=== PATIENT | male | born 1945 | race Caucasian/White ===

== ENCOUNTER 2019-01-20 15:24 | Emergency (ER) | payer MEDICARE, OTHER, SELFPAY ==
[2019-01-20 15:36] VITALS: BP 143/98; PULSE 98; RESP 21; TEMP 36.8; O2SAT 99; BMI 25.8
--- NOTE | 2019-01-20 15:54 | HMH.EDUTC ---
[facility] [place]: At high risk for tick borne illness, Erythema migrans (Lyme disease) Disposition: Home, Self-Care Condition on Discharge: Good Instructions: Lyme Disease, DI for Lyme Disease Additional Instructions: Lyme disease is a bacterial infection caused by the bite of an infected tick. DISCHARGE INSTRUCTIONS: Call 911 for any of the following: Your heart is beating faster than usual and you feel dizzy. You have chest pain or trouble breathing. You suddenly cannot talk or see well, or you have trouble moving an area of your body. Return to the emergency department if: You have a headache and a stiff neck. You have trouble concentrating or thinking clearly. You have numbness or tingling in your arms or legs, or you have trouble walking. Contact your healthcare provider if: Your rash grows or spreads to other areas of your body. You suddenly have trouble falling or staying asleep. You have new or worsening pain and swelling in your joints. You have new or worsening weakness and muscle pain. You have a new tick bite. You have questions or concerns about your condition or care. Medicines: Antibiotics treat a bacterial infection. NSAIDs , such as ibuprofen, help decrease swelling, pain, and fever. This medicine is available with or without a doctor's order. NSAIDs can cause stomach bleeding or kidney problems in certain people. If you take blood thinner medicine, always ask your healthcare provider if NSAIDs are safe for you. Always read the medicine label and follow directions. Take your medicine as directed. Contact your healthcare provider if you think your medicine is not helping or if you have side effects. Tell him of her if you are allergic to any medicine. Keep a list of the medicines, vitamins, and herbs you take. Include the amounts, and when and why you take them. Bring the list or the pill bottles to follow-up visits. Carry your medicine list with you in case of an emergency. Follow up with family doctor in 5-7 days to get results from your blood test today in the [facility] Follow up with Family doctor for further treatment and evaluation of rash and further symptoms Make sure to use bug spray and protect yourself from future tick bites Return if needed Straight to ER if any life threatening symptoms Prescriptions: Doxycycline Monohydrate [Doxycycline Porter 100mg Tab] 100 mg PO BID #28 tab Referrals: Heidi Mueller MD [Primary Care Provider] - As needed Time of Disposition: 16:14 Medical Decision Making - Jayce Inquiry Pt receiving controlled substance: No Jayce was queried for this patient: No Vital Signs: 01/20/19 15:36 Temperature 98.2 F Temperature Source Oral Pulse Rate [Right Brachial] 98 H Respiratory Rate 21 Blood Pressure [Right Arm] 143/98 H Blood Pressure Mean [Right Arm] 113 Blood Pressure Source [Right Arm] Automatic Cuff Blood Pressure Position [Right Arm] Sitting 02 Sat by Pulse Oximetry 99 Oxygen Delivery Method Room Air [facility] [place] - General Stated complaint: rash Time Seen by Provider: 01/20/19 15:56 Mode of Arrival: Family Vehicle Source of Information: Patient Limitations: No Limitations Description of Symptoms (Recalled from Triage Doc. by RN): c/o rash on left baldwin x 1 week. States he had a tick on that area a month ago HEENT Symptoms (Recalled from RN notes): No Resp Symptoms (Recalled from RN notes): No Skin Symptoms (Recalled from RN notes): Yes MS Symptoms (Recalled from RN notes): No Functional Status (Recalled from RN notes): n/a - History of Present Illness Provider Complaint: Patient states that he had a tick bite on his left lower leg several weeks ago State that a couple of days ago he noticed a red raised bump like area on his lower leg a couple of days ago now noticed that he has a red rash with central clearing around the tick bite State that he has been reading and concerned he may have lymes disease from the tick bi
--- NOTE | 2019-01-20 15:58 | ED_ITS ---
[facility] [place]ression: At high risk for tick borne illness, Erythema migrans (Lyme disease) Disposition: Home, Self-Care Condition on Discharge: Good Instructions: Lyme Disease, DI for Lyme Disease Additional Instructions: Lyme disease is a bacterial infection caused by the bite of an infected tick. DISCHARGE INSTRUCTIONS: Call 911 for any of the following: * Your heart is beating faster than usual and you feel dizzy. * You have chest pain or trouble breathing. * You suddenly cannot talk or see well, or you have trouble moving an area of your body. Return to the emergency department if: * You have a headache and a stiff neck. * You have trouble concentrating or thinking clearly. * You have numbness or tingling in your arms or legs, or you have trouble walking. Contact your healthcare provider if: * Your rash grows or spreads to other areas of your body. * You suddenly have trouble falling or staying asleep. * You have new or worsening pain and swelling in your joints. * You have new or worsening weakness and muscle pain. * You have a new tick bite. * You have questions or concerns about your condition or care. Medicines: * Antibiotics treat a bacterial infection. * NSAIDs , such as ibuprofen, help decrease swelling, pain, and fever. This medicine is available with or without a doctor's order. NSAIDs can cause stomach bleeding or kidney problems in certain people. If you take blood thinner medicine, always ask your healthcare provider if NSAIDs are safe for you. Always read the medicine label and follow directions. * Take your medicine as directed. Contact your healthcare provider if you think your medicine is not helping or if you have side effects. Tell him of her if you are allergic to any medicine. Keep a list of the medicines, vitamins, and herbs you take. Include the amounts, and when and why you take them. Bring the list or the pill bottles to follow-up visits. Carry your medicine list with you in case of an emergency. Follow up with family doctor in 5-7 days to get results from your blood test today in the [facility] Follow up with Family doctor for further treatment and evaluation of rash and further symptoms Make sure to use bug spray and protect yourself from future tick bites Return if needed Straight to ER if any life threatening symptoms Prescriptions: Doxycycline Monohydrate [Doxycycline Antrim 100mg Tab] 100 mg PO BID #28 tab Referrals: Heidi Mueller MD [Primary Care Provider] - As needed Time of Disposition: 16:14 Medical Decision Making - Jayce Inquiry Pt receiving controlled substance: No Jayce was queried for this patient: No Vital Signs: 01/20/19 15:36 Temperature 98.2 F Temperature Source Oral Pulse Rate [Right Brachial] 98 H Respiratory Rate 21 Blood Pressure [Right Arm] 143/98 H Blood Pressure Mean [Right Arm] 113 Blood Pressure Source [Right Arm] Automatic Cuff Blood Pressure Position [Right Arm] Sitting 02 Sat by Pulse Oximetry 99 Oxygen Delivery Method Room Air [facility] [place] - General Stated complaint: rash Time Seen by Provider: 01/20/19 15:56 Mode of Arrival: Family Vehicle Source of Information: Patient Limitations: No Limitations Description of Symptoms (Recalled from Triage Doc. by RN): c/o rash on left baldwin x 1 week. States he had a tick on that area a month ago HEENT Symptoms (Recalled from RN notes): No Resp Symptoms (Recalled from RN notes): No Skin Symptoms
[2019-01-20 16:18] VITALS: BP 143/98; PULSE 98; RESP 21; TEMP 36.8; O2SAT 99
[2019-01-24 18:15] LABS: IgG P18 Ab. Absent (.); IgG P23 Ab. Absent (.); IgG P28 Ab. Absent (.); IgG P30 Ab. Absent (.); IgG P39 Ab. Absent (.); IgG P41 Ab. Absent (.); IgG P45 Ab. Absent (.); IgG P58 Ab. Absent (.); IgG P66 Ab. Absent (.); IgG P93 Ab. Absent (.); IgM P23 Ab. Absent (.); IgM P39 Ab. Absent (.); IgM P41 Ab. Absent (.)
[2019-01-26 06:22] LABS: Lyme IgG WB Interp. Negative (.); Lyme IgM WB Interp. Negative (.)
== END 2019-01-20 16:20 | disposition home or self-care (01) ==
PROVIDERS: Emergency Provider Nurse Practitioner; PCP Family Medicine
DX: A69.20 Lyme disease, unspecified (principal); Z91.89 Other specified personal risk factors, not elsewhere classified
CPT/HCPCS: G0463; 86617; 99201

== ENCOUNTER → 2020-10-15 11:42 | Outpatient (CLI) | payer MEDICARE, OTHER, SELFPAY ==
--- NOTE | 2020-10-15 | XR_ITS ---
PROCEDURE: XR SHOULDER LT MIN 2V CLINICAL INDICATION: UNSPECIFIED FALL, ACUTE PAIN OF LT SHOULDER COMPARISON: No exams were available for comparison FINDINGS: There is a small metal plate along the distal and superior aspect of the clavicle along with an anchor screw in the distal clavicle. There are mild osteoarthritic changes of the acromioclavicular and glenohumeral joint. No acute fracture or dislocation is evident. Old left-sided rib fractures are present from rib 2 to rib 7 IMPRESSION: Chronic and postsurgical changes. No acute finding. Dictated by: Francisco Kaur MD 10/15/2020 12:19 Francisco Kaur MD in [place] 10/15/2020 12:19
--- NOTE | 2020-10-15 | XR_ITS ---
PROCEDURE: XR HUMERUS LT CLINICAL INDICATION: UNSPECIFIED FALL, LT ARM PAIN COMPARISON: No exams were available for comparison FINDINGS: No fracture or dislocation. No lytic or blastic change. There is normal mineralization. Mild degenerative changes are present at the glenohumeral joint. There are multiple old left-sided rib fractures. Postsurgical changes are present at the distal clavicle. Other findings:None. IMPRESSION: No acute findings. Dictated by: Francisco Kaur MD 10/15/2020 12:20 Francisco Kaur MD in [facility] 10/15/2020 12:20
== END ==
PROVIDERS: PCP Family Medicine; Visit Provider Family Medicine
DX: M25.512 Pain in left shoulder (principal); M79.602 Pain in left arm; W19.XXXA Unspecified fall, initial encounter; Y92.009 Unspecified place in unspecified non-institutional (private) residence as the place of occurrence of the external cause
CPT/HCPCS: 73030; 73060

== ENCOUNTER 2020-11-10 06:50 | Observation (INO) | payer MEDICARE, OTHER, SELFPAY ==
[2020-11-10] VITALS (9 sets, daily range): BP systolic 96–133; BP diastolic 53–71; PULSE 63–112; RESP 16–18; TEMP 36.6–37.1; O2SAT 96–99; BMI 23.5; BMI 23.8
--- NOTE | 2020-11-10 07:19 | XR_ITS ---
PROCEDURE: XR CHEST 2V CLINICAL HISTORY: WEAKNESS COMPARISON: CT CT ABDOMEN PELVIS WO CON from 11/10/2020 FINDINGS: The cardiomediastinal silhouette and pulmonary vascularity are within normal limits. COPD changes. No lobar consolidation or collapse. No acute bony abnormalities. IMPRESSION: COPD, no acute finding Dictated by: Francisco Kaur MD 11/10/2020 09:17 Francisco Kaur MD in [facility] 11/10/2020 09:17
--- NOTE | 2020-11-10 07:23 | ECG_ITS ---
APPROVED REPORT Exam: Resting ECG HR:98 bpm ECG Measurements Heart Rate 98 AXES FL 126 P 47 QRSd 80 QRS 43 QT 334 T 62 QTc 426 Conclusion Sinus rhythm with marked sinus arrhythmia Otherwise normal ECG Electronically signed by : Jerome Hatfield, 11/10/2020 17:20:58
[2020-11-10 07:34] LABS: Basophils % 0.1 % (0.1-2.0); Eosinophils % 0.1 % (0.1-12.0); Hematocrit 38.8 % (42.0-52.0); Lymphocytes # 1.4 K/mm3 (0.7-4.5); Lymphocytes % 8.7 % (10-50); Mean Corpuscular HGB Conc 33.6 g/dL (31.8-35.4); Mean Corpuscular Hemoglobin 28.3 pg (27.0-31.2); Mean Corpuscular Volume 84.1 fl (80-94); Mean Platelet Volume 8.1 fl (7.4-10.4); Monocytes # 0.9 K/mm3 (0.1-1.0); Monocytes % 5.7 % (1.7-9.3); Neutrophils # 13.7 K/mm3 (1.8-7.8); Neutrophils % 85.3 % (37.0-80.0); Platelet Count 365 K/mm3 (142-424); Red Blood Count 4.61 M/mm3 (4.60-6.20); Red Cell Distribution Width 13.2 % (11.5-17.5)
[2020-11-10 07:38] LABS: MANUAL DIFFERENTIAL MANUAL DIFFERENTIAL (MANUAL DIFF)
[2020-11-10 07:41] LABS: Alanine Aminotransferase 210 U/L (12-78); Albumin/Globulin Ratio 1.1 (1.1-1.8); Alkaline Phosphatase 383 U/L (38-126); Anion Gap 16.6 mEq/L (5-15); Aspartate Amino Transferase 155 U/L (17-59); Bilirubin,Total 1.5 mg/dl (0.2-1.3); Blood Urea Nitrogen 49 mg/dl (9-20); Calcium 9.8 mg/dl (8.4-10.2); Carbon Dioxide 25 mmol/L (22.0-30.0); Chloride 91 mmol/L (98-107); Creatinine Clearance Estimated 30 mL/min (50-200); Estimated Glomerular Filt Rate 31 ml/min (>60); GFR (African American) 38 ML/MIN (>60); Globulin 3.8 g/dL (1.3-3.2); Glucose 137 mg/dl (74-100); Potassium 3.6 mmoL/L (3.5-5.1); Sodium 129 mmol/L (136-145); Total Protein,Serum 7.8 g/dl (6.3-8.2)
[2020-11-10 07:53] LABS: Troponin I 0.06 ng/ml (0.00-0.034)
--- NOTE | 2020-11-10 07:59 | CT_ITS ---
PROCEDURE: CT ABDOMEN PELVIS WO CON CLINICAL INDICATION: ELEVATED LFT'S Elevated liver enzymes, weakness, loss of appetite COMPARISON: No exams were available for comparison TECHNIQUE: Axial images obtained with sagittal and coronal reformats. All CT scans at the facility use one or more dose reduction, viz: automated exposure control, ma/kV adjustment per patient size (including targeted exams where dose is matched to indication, i.e. head), or iterative reconstruction technique. FINDINGS: LOWER THORAX: Coronary artery calcifications ABDOMEN & PELVIS: There are at least 4 hypodense lesions of the liver the largest in the right hepatic lobe anteriorly at 2 cm measuring near water density and may represent hepatic cysts. There is mild splenomegaly at 14 cm. The adrenal glands and pancreas has an unremarkable appearance. There are nonobstructing bilateral renal calculi 2 mm on the right and 2 mm on the left. No ureteral calculi. No hydronephrosis. The stomach wall is thickened but may be due to the contracted state. Gastritis would be included in the differential diagnosis. Lobular soft tissue density is present anterior to the aorta in the upper abdomen. This may be related to fusiform dilatation of the celiac artery measuring up to [address] angiogram may confirm. There are few small retroperitoneal lymph nodes. Adenopathy is included in the differential diagnosis. No intestinal obstruction or free air. No evidence of appendicitis. The prostate is enlarged at 5 cm. There is some minimal stranding of the fat in the left lower quadrant/inguinal area. This is adjacent to a colonic diverticulum. That diverticulum however does not appear thickened. There is colonic diverticulosis. No intestinal obstruction or free air. No acute bony findings. IMPRESSION: 1. Probable hepatic cysts 2. Nonobstructing bilateral renal calculi. 3. 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 Mild stranding of the fat in the left inguinal region adjacent to a colonic diverticulum. Mild diverticulitis or even old inflammatory changes is a consideration. Please correlate with clinical findings. 5. Colonic diverticulosis. Dictated by: Francisco Kaur MD 11/10/2020 09:49 Francisco Kaur MD in [place] 11/10/2020 09:49
--- NOTE | 2020-11-10 08:00 | PC.NURSE ---
FAMILY AT BEDSIDE
[2020-11-10 08:11] LABS: Lymphocytes % 12 % (10-50); Monocytes % 3 % (2-9); Neutrophils % 84 % (42-76); Thyroid Stimulating Hormone 0.71 uIU/mL (0.465-4.68); Total Cells Counted 100
[2020-11-10 08:12] LABS: Platelet Estimate Normal; RBC Morphology Normal
[2020-11-10 08:54] LABS: Microscopic, Urine URINE MICROSCOPIC (MICROSCOPIC)
[2020-11-10 08:59] LABS: Appearance,Urine CLEAR (Clear); Bilirubin,Urine Negative (Negative); Blood, Urine Negative (Negative); Color,Urine YELLOW (Yellow); Glucose,Urine (UA) Negative (Negative); Ketones,Urine Negative (Negative); Leukocyte Esterase,Urine Negative (Negative); Nitrate,Urine Negative (Negative); Protein,Urine TRACE (Negative)
--- NOTE | 2020-11-10 09:00 | PC.NURSE ---
PT OFFERS NO C/O AT PRESENT. FAMILY AT BEDSIDE
[2020-11-10 09:08] LABS: RBC,Urine Occasional #/hpf (0-3); Squamous Epithelial Cell,Urine Occasional #/hpf (0-5)
--- NOTE | 2020-11-10 09:11 | PC.NURSE ---
requested lab results from pt pcp office per ER MD request r/t no lab hx in our system.
[2020-11-10 09:33] LABS: Creatine Kinase 41 U/L (55-170)
--- NOTE | 2020-11-10 10:00 | PC.NURSE ---
PT AND FAMILY UPDATED ON PLAN OF CARE
--- NOTE | 2020-11-10 10:18 | HMH.EDGENADL ---
ED Disposition Clinical Impression: Dehydration, Hyponatremia, Acute kidney injury, Elevated transaminase level Disposition: Admitted As Inpatient Condition on Discharge: Fair Referrals: Heidi Mueller MD [Primary Care Provider] - - Critical Care Critical Care Time: No Attestation: On 11/10/20, the high probability of a clinically significant, sudden or life threatening deterioration of the following system(s) required my full and direct attention, intervention and personal management. The time I documented below is in addition to time spent performing reported procedures but includes the following listed in this critical care notation. Medical Decision Making - Medical Records Medical records reviewed: Yes: I reviewed the patient's medical records. - Jayce Inquiry Pt receiving controlled substance: No Vital Signs: 11/10/20 07:15 11/10/20 08:00 11/10/20 08:57 Temperature 98.7 F Temperature Source Oral Pulse Rate 85 Pulse Rate [Radial] 112 H 88 Respiratory Rate 16 16 Blood Pressure 98/53 L Blood Pressure [Right Arm] 96/55 L 120/62 Blood Pressure Mean 70 Blood Pressure Mean [Right Arm] 68 81 Blood Pressure Position [Right Arm] Sitting Sitting 02 Sat by Pulse Oximetry 98 99 98 Oxygen Delivery Method Room Air Room Air Room Air - Lab Data Lab Results 11/10/20 07:03: Urine Color Yellow, Urine Appearance Clear, Urine pH 6.0, Ur Specific [place] 1.010, Urine Protein Trace, Urine Glucose (UA) Negative, Urine Ketones Negative, Urine Blood Negative, Urine Nitrate Negative, Urine Bilirubin Negative, Urine Urobilinogen 2.0, Ur Leukocyte Esterase Negative, Urine RBC Occasional, Urine WBC 3-5, Ur Squamous Epith Cells Occasional, Urine Bacteria None 11/10/20 07:10: WBC 16.0 H, RBC 4.61, Hgb 13.0 L, Hct 38.8 L, MCV 84.1, MCH 28.3, MCHC 33.6, RDW 13.2, Plt Count 365, MPV 8.1, Neut % (Auto) 85.3 H, Lymph % (Auto) 8.7 L, Schley % (Auto) 5.7, Eos % (Auto) 0.1, Baso % (Auto) 0.1, Neut # (Auto) 13.7 H, Lymph # (Auto) 1.4, Schley # (Auto) 0.9, Eos # (Auto) 0.0, Baso # (Auto) 0.0, Total Counted 100, Neutrophils % (Manual) 84 H, Band Neutrophils % 1.0, Lymphocytes % (Manual) 12, Monocytes % (Manual) 3, Platelet Estimate Normal, RBC Morphology Normal 11/10/20 07:10: Sodium 129 L, Potassium 3.6, Chloride 91 L, Carbon Dioxide 25, Anion Gap 16.6 H, BUN 49 H, Creatinine 2.10 H, Estimated Creat Clear 30, Estimated GFR 31 L, Est GFR ( Amer) 38 L, Glucose 137 H, Calcium 9.8, Total Bilirubin 1.5 H, AST 155 H, ALT 210 H, Alkaline Phosphatase 383 H, Troponin I 0.06 H, Total Protein 7.8, Albumin 4.0, Globulin 3.8 H, Albumin/Globulin Ratio 1.1, TSH 0.71, Thyroxine (T4) 12.0 H 11/10/20 07:10: Total Creatine Kinase 41 L 11/10/20 10:17: Troponin I 0.04 H Result diagrams: 11/10/20 07:10 11/10/20 07:10 Orders (Tests/Meds): ED MEDICATIONS Discontinued Medications Generic Name Dose Route Start Last Admin Trade Name Freq PRN Reason Stop Dose Admin Sodium Chloride 1,000 mls @ 999 mls/hr 11/10/20 07:30 11/10/20 07:28 Sod Chlor 0.9% 1000ml Bag IV 11/10/20 08:30 999 mls/hr .Q1H1M JAGDEEP Administration Sodium Chloride 1,000 mls @ 999 mls/hr 11/10/20 09:45 11/10/20 10:11 Sod Chlor 0.9% 1000ml Bag IV 11/10/20 10:45 999 mls/hr .Q1H1M JAGDEEP Administration ORDERS Category Date Time Status Hepatitis Panel (4) Stat Lab 11/10/20 07:10 Received Troponin I Q3H Lab 11/10/20 13:30 Ordered - Radiology Data #1 Image(s): Chest Image Reviewed: Yes I reviewed the patient's radiology results, Yes I have reviewed radiologist's interpretation Preliminary Findings: Normal/NAD, No Fracture Seen - CT Data CT Scan: Abdomen, Pelvis Time Received: 11:[address] Reviewed: Yes: I have reviewed the patient's CT results, I have viewed the radiologist's interpretation Findings Narrative: IMPRESSION: 1. Probable hepatic cysts 2. Nonobstructing bilateral renal calculi. 3. Suspect mild fusiform dilatation of the
[2020-11-10 10:46] LABS: Troponin I 0.04 ng/ml (0.00-0.034)
--- NOTE | 2020-11-10 11:09 | PC.NURSE ---
FAMILY AND PT UPDATED ON PLAN OF CARE
--- NOTE | 2020-11-10 11:31 | PC.NURSE ---
dr hernandez speaking with dr adams
--- NOTE | 2020-11-10 12:23 | PC.NURSE ---
REPORT CALLED TO FLOOR
--- NOTE | 2020-11-10 13:00 | PC.NURSE ---
CALLED FLOOR REGARDING PT ADMISSION. NURSE IS COMING TO ED TO BRING PT TO ROOM
[2020-11-10 14:20] LABS: Troponin I 0.03 ng/ml (0.00-0.034)
--- NOTE | 2020-11-10 14:23 | HMH.PHAVTE ---
[facility] Pharmacy VTE Monitoring - Patient Demographics Admission date: 11/10/20 Report Date: 11/10/20 Time: 14:23 Allergies/Adverse Reactions: Patient Allergies No Known Allergies Allergy (Verified 01/20/19 15:39) Height: 1.7 m Weight: 68.946 kg Patient Problems: Current Active Problems Dehydration (Acute) Hyponatremia (Acute) Acute kidney injury (Acute) Elevated transaminase level (Acute) - VTE Risk Labs: VTE Related Lab Results Hgb 13.0 g/dL (14.1-18.0) L 11/10/20 07:10 Hct 38.8 % (42.0-52.0) L 11/10/20 07:10 Plt Count 365 K/mm3 (142-424) 11/10/20 07:10 BUN 49 mg/dl (9-20) H 11/10/20 07:10 Creatinine 2.10 mg/dl (0.66-1.25) H 11/10/20 07:10 Estimated Creat Clear 30 mL/min (50-200) 11/10/20 07:10 - Prophylaxis VTE Prophylaxis Ordered?: Yes Types of VTE Prophylaxis: TEDS Knee High, Pharmacological Location of Applied Device: Bilateral Lower Extremeties Pharmacologic Type: Enoxaparin
--- NOTE | 2020-11-10 14:25 | HMH.PHAINT ---
MEDICATION RECONCILIATION COMPLETED ON PATIENT USING EXTERNAL FILL HISTORY FROM PHARMACY. -GÓMEZ LAY, KARYNAD
--- NOTE | 2020-11-10 14:30 | HMH.CONS ---
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 He was admitted to the hospital today for fatigue, dehydration and transaminitis. Per his daughter's report, about 5 weeks ago, the patient may have been exposed to Covid?19. About 5 days later he developed a mild fever, some upper respiratory allergy-like symptoms but did not seek care for that. A few days after that the patient had a fall on October 15, injuring his left arm. The patient felt like he was in such discomfort and pain from the fall that he became very fatigued and lost his appetite and most of his motivation. He denies any nausea, vomiting, further fever. He did report chills. He denies any abdominal pain, change in his bowel habits, melena or hematochezia. He reports he was eating very little and having a bowel movement about every other day. His daughter reports that he has been seen by his PCP and had some very mild elevations in his liver enzymes but the patient denies ever having problems with his liver previous to this. He denies any alcohol or NSAID use. He denies any exposure to hepatitis that he is aware of. Upon arrival to the ER today, he was mildly tachycardic and mildly hypotensive. He did have an elevated WBCs of 16 and a mildly low hemoglobin of 13. He had low sodium at 129 and a creatinine elevated at 2.10. Chest x-ray showed only COPD. CT scan showed 4 lesions in the liver that look to be hepatic cysts and mild splenomegaly at 14 cm. He did have a thickened stomach wall gastritis versus nondistention. He had some mild stranding of fat in the left inguinal area near a diverticulum but there was no thickening of that diverticulum. He did have elevation of bilirubin at 1.5, AST at 155, ALT at 210, and alk phos of 383. He is seen sitting up in his bed in the patient's room since admission. He has gotten 2 L of IV fluids since admission. He reports feeling significantly better since receiving IV fluids. He was able to eat provided lunch and feels as though he could have a bowel movement. [facility] History *Have you ever received a pneumonia vaccine?: Yes *Have you received a flu vaccine this season?: Yes - *Social History Alcohol Intake: never *Occupational Status:: retired *Travel in the last 8 weeks: None Family Hx:: Non-contributory Review of Systems - Review of Systems Review of systems:: other, pertinent systems reviewed and negative unless documented below - Constitutional Reports anorexia, Reports body ache(s), Reports chills, Reports fatigue, Reports fever(s), Reports lack of energy, Reports weight loss - Eyes Denies change in vision, Denies pain - ENT Denies dizziness, Denies nosebleed, Denies hoarseness, Denies pain with swallowing, Denies throat swelling - *Cardiovascular Denies chest pain, Denies shortness of breath, Denies generalized swelling, Denies leg swelling - *Respiratory Reports cough, Denies chest congestion, Denies shortness of breath Comments: Patient reports chronic cough - *Gastrointestinal Denies abdominal pain, Denies belching, Denies bloating, Denies constipation, Denies loose stools, Denies difficulty swallowing, Denies bright, red blood in stools, Denies nausea, Denies vomiting - *Musculoskeletal Reports muscle weakness, Denies joint pain, Denies numbness, Denies tingling - Integumentary/Breasts Denies changing lesions, Denies dry skin, Denies itching - *Neurologic Reports weakness, Denies abnormal speech, Denies behavioral changes, Denies headache(s) - Psychiatric Denies lack of enjoyment, Denies anxiety, Denies behavioral changes, Denies depression - Endocrine Reports cold intolerance, Denies heat intolerance - Hematologic/Lymphatic Denies easy bleeding, Denies easy bruising Meds Home Medications Medication Instructions Recorded Confirmed Type Benazepril HCl 1
--- NOTE | 2020-11-10 16:31 | PC.ADMIT ---
Admission Note: New admission this shift from the ED w/ c/o generalized weakness, poor appetite and a fall on October 15 of this year. Pt arrived to floor @ 1330. No complaints voiced. Pt states he already feels better after receiving fluids in the ED. He is A&Ox4. Pt is [employer] and wears hearing aids, they are on his person. Remains on room air. Lungs CTA. No cough noted. Abdomen is soft,non-tender w/ hyperactive BS in all quads. When he arrived to floor pt ate about 30% of this dinner tray, tolerating intake w/ no c/o gi upset/nausea. Skin intact. No edema present. He is currently sitting up in bed watching TV. Daughter @ [place]. No needs voiced. Pt ambulates independently to bathroom w/o safety concerns. Call paz w/in reach. The patient,Abimael Badillo,75 y/o, was given written information regarding hospital policies, unit procedures and contact persons. Vital Signs - 8 hr 11/10/20 08:57 11/10/20 09:57 11/10/20 11:00 Temperature Pulse Rate Pulse Rate [Radial] 88 88 100 H Respiratory Rate 16 16 Blood Pressure Blood Pressure [Right Arm] 120/62 122/62 126/56 L 02 Sat by Pulse Oximetry 98 98 97 11/10/20 13:38 11/10/20 13:59 Temperature 98.5 F 98 F Pulse Rate 80 Pulse Rate [Radial] 95 H Respiratory Rate 17 16 Blood Pressure 122/62 Blood Pressure [Right Arm] 120/58 L 02 Sat by Pulse Oximetry 96
--- NOTE | 2020-11-10 17:00 | HMH.HP ---
*Admission Date: 11/10/20 *Chief complaint: Weakness *History of present illness: 75-year-old male presented to the emergency department this morning with weakness and malaise. The patient himself relates all this back to a fall in late September which resulted in a left shoulder injury. Patient visited the office and had an evaluation including x-rays which did not reveal any fracture. While his pain was never severe he reports that because of the fall and injury this ultimately led to lack of motivation, lack of appetite and weakness. He admits to approximately a 15 pound weight loss. He reports within the last week he finally realized that his health was declining and he began to try to increase his p.o. intake but feels like he cannot do it himself out of the hole he had created. He is accompanied by his daughter who reports his fall 1 month ago was preceded by an upper respiratory illness. Patient is mostly compliant with doctor's visits and takes his medicines as prescribed. Review of office notes shows no history of liver abnormalities other than a mild elevation of total bilirubin with last total bili being 1.3 in April 2020. Transaminases were normal. Patient also had normal renal function at that time. In the emergency department patient underwent evaluation and was found to have evidence of acute kidney injury likely prerenal in nature as well as transaminitis. Patient was successfully hydrated with 2 L normal saline. Patient himself reports feeling significantly better after fluid boluses. He was admitted for further IV hydration, monitoring of electrolytes, renal and hepatic functions. Patient has history of hypertension and hyperlipidemia. He also has had elevated PSA for several years with last PSA being 6.3 in April 2020. Patient's in the fall 2019. [facility] History I have reviewed the patient's past medical history: Yes Medical History: Reports:: Hyperlipidemia, Hypertension Denies:: Cancer, Diabetes Mellitus Type 2, MRSA *Have you ever received a pneumonia vaccine?: Yes *Have you received a flu vaccine this season?: Yes Laterality Cases: Left: Arthroscopy Shoulder - *Social History Last grade of school completed: High school graduate Alcohol Intake: never *Occupational Status:: retired Housing: house Household Members: none *Travel in the last 8 weeks: None Family Hx:: No significant family history Review of Systems - Constitutional Reports anorexia - Eyes Denies blurry vision - ENT Reports abnormal hearing - *Cardiovascular Denies chest pain - *Respiratory Denies change in phlegm color - *Gastrointestinal Denies abdominal pain, Denies belching, Denies bloating, Denies change in bowel habits, Denies cramping, Denies loose stools, Denies heartburn, Denies loose stools - *Genitourinary Reports urinary frequency, Denies difficulty urinating, Denies painful urination, Denies blood in urine - *Musculoskeletal Denies abnormal walking - Integumentary/Breasts Denies hair loss - *Neurologic Reports weakness, Denies abnormal speech, Denies behavioral changes, Denies dizziness, Denies headache(s), Denies numbness, Denies tingling Meds Home Medications Medication Instructions Recorded Confirmed Type Benazepril HCl 10 mg PO DAILY 01/20/19 11/10/20 History Simvastatin 20 mg PO HS 01/20/19 11/10/20 History Amlodipine Besylate [Norvasc 5mg 5 mg PO DAILY 11/10/20 11/10/20 History tablet] Aspirin [Aspirin 81mg EC Tab] 81 mg PO DAILY 11/10/20 11/10/20 History Triamterene/Hydrochlorothiazid 1 each PO DAILY 11/10/20 11/10/20 History [Triamterene-Hctz 37.5-25 mg Tb] Allergies Allergy/AdvReac Type Severity Reaction Status Date / Time No Known Allergies Allergy Verified 01/20/19 15:39 Exam Vital signs and Labs for Last 24 Hours: Temp Pulse Resp BP Pulse Ox 98 F 80 16 122/62 96 11/10/20 13:59 11/10/20 13:59 11/10/20 13:59 11/10/20 13:59 0
[2020-11-11 04:00] VITALS: BP 134/68; PULSE 100; RESP 16; TEMP 36.7; O2SAT 97
[2020-11-11 05:19] VITALS: BMI 23.8
--- NOTE | 2020-11-11 05:19 | PC.NURSE ---
Patient VS stable; shows no s/s of acute distress noted at time. Call light within reach, bed at lowest level for safety. Will continue to monitor.
--- NOTE | 2020-11-11 07:01 | HMH.ACPN2 ---
Internal Medicine - PN: Subj *Date: 11/11/20 *Time: 07:01 Interval history: Patient has no complaints this morning. He reports he ate most of his supper yesterday evening. IV fluids have continued. He denies any new symptoms developing overnight. Exam Vital signs and Labs for Last 24 Hours: Temp Pulse Resp BP Pulse Ox 98.0 F 100 H 16 134/68 97 11/11/20 04:00 11/11/20 04:00 11/11/20 04:00 11/11/20 04:00 11/11/20 04:00 Laboratory Results - last 24 hr 11/10/20 07:03: Urine Color Yellow, Urine Appearance Clear, Urine pH 6.0, Ur Specific [place] 1.010, Urine Protein Trace, Urine Glucose (UA) Negative, Urine Ketones Negative, Urine Blood Negative, Urine Nitrate Negative, Urine Bilirubin Negative, Urine Urobilinogen 2.0, Ur Leukocyte Esterase Negative, Urine RBC Occasional, Urine WBC 3-5, Ur Squamous Epith Cells Occasional, Urine Bacteria None 11/10/20 07:10: WBC 16.0 H, RBC 4.61, Hgb 13.0 L, Hct 38.8 L, MCV 84.1, MCH 28.3, MCHC 33.6, RDW 13.2, Plt Count 365, MPV 8.1, Neut % (Auto) 85.3 H, Lymph % (Auto) 8.7 L, [place] % (Auto) 5.7, Eos % (Auto) 0.1, Baso % (Auto) 0.1, Neut # (Auto) 13.7 H, Lymph # (Auto) 1.4, [place] # (Auto) 0.9, Eos # (Auto) 0.0, Baso # (Auto) 0.0, Total Counted 100, Neutrophils % (Manual) 84 H, Band Neutrophils % 1.0, Lymphocytes % (Manual) 12, Monocytes % (Manual) 3, Platelet Estimate Normal, RBC Morphology Normal 11/10/20 07:10: Sodium 129 L, Potassium 3.6, Chloride 91 L, Carbon Dioxide 25, Anion Gap 16.6 H, BUN 49 H, Creatinine 2.10 H, Estimated Creat Clear 30, Estimated GFR 31 L, Est GFR ( Amer) 38 L, Glucose 137 H, Calcium 9.8, Total Bilirubin 1.5 H, AST 155 H, ALT 210 H, Alkaline Phosphatase 383 H, Troponin I 0.06 H, Total Protein 7.8, Albumin 4.0, Globulin 3.8 H, Albumin/Globulin Ratio 1.1, TSH 0.71, Thyroxine (T4) 12.0 H 11/10/20 07:10: Total Creatine Kinase 41 L 11/10/20 10:17: Troponin I 0.04 H 11/10/20 13:45: Troponin I 0.03 I & O for Last 24 hours: Intake & Output 11/08/20 11/09/20 11/10/20 11/11/20 11:59 11:59 11:59 11:59 Intake Total 1583 / 1583 Output Total 1700 / 1700 Balance -117 / -117 Weight 150 lb 151 lb 15.998 oz Microbiology Reports for the Last 24 Hours: Microbiology 11/10/20 08:00 Nasopharyngeal Coronavirus COVID-19 PCR - Final - Constitutional no acute distress - *Routine HEENT Exam Head: Present: normocephalic Eye: Present: EOMI, PERRL ENT: Present: mucous membranes moist - *Routine Neck Exam Present: supple. Absent: lymphadenopathy - *Routine Respiratory Exam Present: CTA bilaterally - *Routine Cardiovascular Exam Present: RRR - *Routine Abdominal Exam Present: soft, normoactive bowel sounds. Absent: tenderness - *Routine Extremities Exam Absent: cyanosis, clubbing, edema Assessment and Plan (1) Acute kidney injury Status: Acute Category: Medical Code(s): N17.9 - Acute kidney failure, unspecified (2) Elevated transaminase level Status: Acute Category: Medical Code(s): R74.01 - Elevation of levels of liver transaminase levels (3) Dehydration Status: Acute Category: Medical Code(s): E86.0 - Dehydration (4) Hyponatremia Status: Acute Category: Medical Code(s): E87.1 - Hypo-osmolality and hyponatremia - Assessment and plan all Dx Assessment and Plan for all problems:: Await labs this morning. Anticipate discharge as long as there has been improvement in both renal and hepatic functions
[2020-11-11 07:23] LABS: Basophils % 0.2 % (0.1-2.0); Eosinophils % 0.1 % (0.1-12.0); Hematocrit 31.7 % (42.0-52.0); Lymphocytes # 0.7 K/mm3 (0.7-4.5); Lymphocytes % 6.3 % (10-50); Mean Corpuscular HGB Conc 33.1 g/dL (31.8-35.4); Mean Corpuscular Hemoglobin 28.2 pg (27.0-31.2); Mean Corpuscular Volume 85.2 fl (80-94); Mean Platelet Volume 7.6 fl (7.4-10.4); Monocytes # 0.5 K/mm3 (0.1-1.0); Monocytes % 4.2 % (1.7-9.3); Neutrophils # 9.6 K/mm3 (1.8-7.8); Neutrophils % 89.2 % (37.0-80.0); Platelet Count 215 K/mm3 (142-424); Red Blood Count 3.72 M/mm3 (4.60-6.20); Red Cell Distribution Width 13.4 % (11.5-17.5); White Blood Count 10.8 K/mm3 (4.8-10.8)
[2020-11-11 07:25] LABS: MANUAL DIFFERENTIAL MANUAL DIFFERENTIAL (MANUAL DIFF)
[2020-11-11 07:26] VITALS: BP 143/74; PULSE 109; RESP 18; TEMP 36.6; O2SAT 97
[2020-11-11 07:26] LABS: Hemoglobin 10.5 g/dL (14.1-18.0)
[2020-11-11 07:30] LABS: Iron 18 ug/dL (49-181)
[2020-11-11 07:34] LABS: Alanine Aminotransferase 159 U/L (12-78); Albumin Level 3.2 g/dl (3.5-5.0); Alkaline Phosphatase 286 U/L (38-126); Anion Gap 11.6 mEq/L (5-15); Aspartate Amino Transferase 99 U/L (17-59); Bilirubin,Total 1.3 mg/dl (0.2-1.3); Blood Urea Nitrogen 34 mg/dl (9-20); Carbon Dioxide 24 mmol/L (22.0-30.0); Chloride 99 mmol/L (98-107); Creatinine Clearance Estimated 45 mL/min (50-200); Estimated Glomerular Filt Rate 50 ml/min (>60); GFR (African American) 60 ML/MIN (>60); Globulin 3.2 g/dL (1.3-3.2); Glucose 116 mg/dl (74-100); Potassium 3.6 mmoL/L (3.5-5.1); Sodium 131 mmol/L (136-145); Total Protein,Serum 6.4 g/dl (6.3-8.2)
[2020-11-11 07:37] LABS: Calcium 8.7 mg/dl (8.4-10.2)
[2020-11-11 07:49] LABS: Total Iron Binding Capacity 257 ug/dL (261-462)
[2020-11-11 08:39] LABS: Lymphocytes % 4 % (10-50); Monocytes % 4 % (2-9); Neutrophils % 92 % (42-76); Platelet Estimate Normal; RBC Morphology Normal; Total Cells Counted 100
[2020-11-11 08:55] LABS: Ferritin 1020 ng/ml (17.9-464)
[2020-11-11 11:12] LABS: Hep A Ab, IgM Negative (Negative); Hepatitis B Core Antibody IgM Negative (Negative); Hepatitis B Surface Antigen Negative (Negative)
[2020-11-11 13:40] LABS: Hepatitis C Antibody <0.1 s/co ratio (0.0-0.9)
[2020-11-12 11:21] LABS: Prostate Specific Ag 6.9 ng/mL (0.0-4.0)
[2020-11-12 11:22] LABS: Alpha-1-Antitrypsin 273 mg/dL (101-187); Ceruloplasmin 34.1 mg/dL (16.0-31.0); PSA, Free 0.61 ng/mL
[2020-11-12 16:47] LABS: Angiotensin Converting Enzyme <15 U/L (14-82)
[2020-11-12 17:33] LABS: Liver-Kidney Microsomal Ab 1.5 Units (0.0-20.0)
[2020-11-15 10:26] LABS: CA 19-9 15 U/mL (0-35); CEA 2.9 ng/mL (0.0-4.7)
[2020-11-15 11:56] LABS: Actin (Smooth Muscle) Antibody 3
[2020-11-15 11:57] LABS: Anti-DNA (DS) Ab Charge YES; Anti-DNA (DS) Ab Qn <1; Antinuclear Antibodies (ANA) POSITIVE; Mitochondrial (M2) Antibody <20.0; RNP Antibodies Charge YES
[2020-11-15 11:58] LABS: Anti-Jo-1 <.2; Anti-Jo-1 Charge YES; Antichromatin Abs Charge YES; Antichromatin Antibodies <.2; Antiscleroderma-70 Abs Charge YES; Antiscleroderma-70 Antibodies <.2; RNP Antibodies 1.2; Sjogren's Anti-SS-A <.2; Sjogren's Anti-SS-A Ab Charge YES; Sjogren's Anti-SS-B <.2; Sjogren's Anti-SS-B Ab Charge YES; Smith Antibodies Charge YES
[2020-11-15 11:59] LABS: Anti-Centromere B Abs Charge YES; Anti-Centromere B Antibodies <.2
--- NOTE | 2020-11-29 07:22 | HMH.DCSUM ---
General - General Admission date:: 11/10/20 Discharge date: 12/12/20 HPI HPI: 75-year-old male presented to the emergency department this morning with weakness and malaise. The patient himself relates all this back to a fall in late September which resulted in a left shoulder injury. Patient visited the office and had an evaluation including x-rays which did not reveal any fracture. While his pain was never severe he reports that because of the fall and injury this ultimately led to lack of motivation, lack of appetite and weakness. He admits to approximately a 15 pound weight loss. He reports within the last week he finally realized that his health was declining and he began to try to increase his p.o. intake but feels like he cannot do it himself out of the hole he had created. He is accompanied by his daughter who reports his fall 1 month ago was preceded by an upper respiratory illness. Patient is mostly compliant with doctor's visits and takes his medicines as prescribed. Review of office notes shows no history of liver abnormalities other than a mild elevation of total bilirubin with last total bili being 1.3 in April 2020. Transaminases were normal. Patient also had normal renal function at that time. In the emergency department patient underwent evaluation and was found to have evidence of acute kidney injury likely prerenal in nature as well as transaminitis. Patient was successfully hydrated with 2 L normal saline. Patient himself reports feeling significantly better after fluid boluses. He was admitted for further IV hydration, monitoring of electrolytes, renal and hepatic functions. Patient has history of hypertension and hyperlipidemia. He also has had elevated PSA for several years with last PSA being 6.3 in April 2020. Patient's in the fall 2019. Hospital Course Hospital Course: Patient was bolused with IV fluids in the ER and admitted for dehydration and generalized weakness. By the afternoon of admission patient had already begun feeling better and was eating better than he had at home. The next morning patient's BUN and creatinine as well as transaminases had all decreased. Patient was feeling better and was discharged home. Patient will follow-up in the office as an outpatient and will need further work-up for possible malignancy including colonoscopy. Objective Vital signs: Temp Pulse Resp BP Pulse Ox 97.8 F 109 H 18 143/74 H 97 11/11/20 07:26 11/11/20 07:26 11/11/20 07:26 11/11/20 07:26 11/11/20 07:26 DS: Diagnosis - Discharge Diagnosis (1) Acute kidney injury Status: Acute (2) Elevated transaminase level Status: Acute (3) Dehydration Status: Acute (4) Hyponatremia Status: Acute Discharge Plan - Patient Discharge Instructions ACTIVITY: Continue current activity DIET: continue same diet Patient Instructions: DI for Dehydration -- Adult, DI for Hyponatremia, DI for Acute Kidney Injury - Follow up Plan Follow up with: Heidi Mueller MD [Primary Care Provider] - 11/18/20 9:30 am Disposition: Home, Self-Detention Medications: Home Medications Medication Instructions Recorded Confirmed Type Benazepril HCl 10 mg PO DAILY 01/20/19 11/21/20 History Simvastatin 20 mg PO HS 01/20/19 11/21/20 History Amlodipine Besylate [Norvasc 5mg 5 mg PO DAILY 11/10/20 11/21/20 History tablet] Aspirin [Aspirin 81mg EC Tab] 81 mg PO DAILY 11/10/20 11/21/20 History Ferrous Sulfate [Ferrous Sulfate 325 mg PO DAILY 11/21/20 11/21/20 History 325mg Tablet] Multivit-Min/FA/Lycopen/Lutein 1 each PO DAILY 11/22/20 11/22/20 History [Centrum Silver Men Tablet] Prescriptions/Medication Reconciliation: Continued Simvastatin 20 mg PO HS Benazepril HCl 10 mg PO DAILY Aspirin [Aspirin 81mg EC Tab] 81 mg PO DAILY Amlodipine Besylate [Norvasc 5mg tablet] 5 mg PO DAILY Discontinued Triamterene/Hydrochlorothia
== END 2020-11-11 09:28 | disposition home or self-care (01) ==
LOC: ER 11:36 → 2ND 12:20
PROVIDERS: Emergency Medicine; Nurse Practitioner Family; Admitting Provider Family Medicine; Emergency Provider Emergency Medicine; PCP Family Medicine; Visit Provider Family Medicine
DX: E86.0 Dehydration (principal); E87.1 Hypo-osmolality and hyponatremia; N17.9 Acute kidney failure, unspecified; Z79.899 Other long term (current) drug therapy; R97.20 Elevated prostate specific antigen [PSA]; R74.01 Elevation of levels of liver transaminase levels
CPT/HCPCS: 36415; 71046; 74176; 80053; 80074; 81001; 82103; 82164; 82378; 82390; 82550; 82728; 83540; 83550; 84153; 84154; 84436; 84443; 84484; 85007; 85025; 86038; 86225; 86235; 86255; 86256; 86316; 86376; 93005; 96365; 96367; 99284; G0378; U0003

== ENCOUNTER 2020-11-21 18:29 | Inpatient (IN) | payer MEDICARE, OTHER, SELFPAY ==
--- NOTE | 2020-11-21 10:30 | CT_ITS ---
PROCEDURE: CT ABDOMEN PELVIS WO/W CON CLINICAL INDICATION: ABD PAIN COMPARISON: CT CT ABDOMEN PELVIS WO CON from 11/10/2020 TECHNIQUE: IV Contrast: 75ML Isovue 370 Oral Contrast None Axial images obtained with sagittal and coronal reformats. All CT scans at the facility use one or more dose reduction, viz: automated exposure control, ma/kV adjustment per patient size (including targeted exams where dose is matched to indication, i.e. head), or iterative reconstruction technique. FINDINGS: LOWER THORAX: Small bilateral pleural effusions with adjacent compressive atelectasis. Calcified granuloma in the right lower lobe. ABDOMEN & PELVIS: There is a large focal heterogeneous density lesion noted in the segments 6, 7 of the liver measuring approximately 7.3 x 6.1 times 12 centimeters. Multiple focal areas of hypodensities are noted within the lesion. Heterogeneous enhancement is noted on the venous phase. Delayed phase images demonstrate isodense to the liver with the multifocal areas of hypodensities. There is minor heterogeneous density noted in the periportal region and adjacent to the dilated ducts. Minor adjacent periportal edema is noted. The CBD otherwise is normal in caliber. There is evidence of thrombosis of the right portal vein. The main portal vein and the left main branch appears are intact. The visualized hepatic veins are within normal limits. Focal hypodense lesions are noted in the liver in segment 5 and 8, demonstrate no enhancement, likely represent cysts. The gallbladder is under distended and demonstrates minor enhancement. Hepatomegaly is noted with the liver measuring 22 centimeters in craniocaudal dimension. The spleen is at the upper limit of normal. The adrenal glands, kidneys and pancreas are unremarkable. Colonic diverticula are noted. There is evidence of focal wall thickening of the sigmoid colon with some minor pericolonic stranding, likely represents diverticular disease. Moderate fecal retention of the rectosigmoid colon. Small amount of free fluid is noted in the pelvis. The small bowel loops are unremarkable. No evidence of obstruction noted. No significant retroperitoneal or mesenteric lymphadenopathy. Atherosclerotic vascular calcification of the abdominal aorta and its branches. Multilevel degenerative changes of the visualized lumbar spine. IMPRESSION: Findings are consistent with portal vein thrombosis. Large heterogeneous density lesion in the right lobe of the liver, demonstrates multiple focal areas of heterogeneous density, raises the concern for a mass lesion. Metastasis versus primary neoplasm should be considered. Hepatic abscess should be considered. Multiple colonic diverticula is noted. Focal area of wall thickening noted in the sigmoid colon is noted,, may represent diverticular disease. Neoplasm cannot be completely excluded. Results were discussed with Dr. Downs at 2:45 p.m. on November 21 2020 Dictated by: Nicole Julio 11/21/2020 14:50 Nicole Julio in [facility] 11/21/2020 14:50
--- NOTE | 2020-11-21 18:43 | PC.NURSE ---
PT ARRIVED TO FLOOR
[2020-11-21 18:45] VITALS: BP 136/66; PULSE 99; RESP 18; TEMP 36.8; O2SAT 99; BMI 24.3
[2020-11-21 19:07] LABS: Basophils % 0.2 % (0.1-2.0); Eosinophils # 0.1 K/mm3 (0.0-0.4); Eosinophils % 0.3 % (0.1-12.0); Hematocrit 31.6 % (42.0-52.0); Hemoglobin 10.1 g/dL (14.1-18.0); Lymphocytes # 1.3 K/mm3 (0.7-4.5); Lymphocytes % 7.5 % (10-50); Mean Corpuscular HGB Conc 31.9 g/dL (31.8-35.4); Mean Corpuscular Hemoglobin 27.5 pg (27.0-31.2); Mean Corpuscular Volume 86.5 fl (80-94); Mean Platelet Volume 7.6 fl (7.4-10.4); Monocytes # 0.5 K/mm3 (0.1-1.0); Neutrophils # 15.3 K/mm3 (1.8-7.8); Neutrophils % 88.9 % (37.0-80.0); Platelet Count 521 K/mm3 (142-424); Red Blood Count 3.65 M/mm3 (4.60-6.20); Red Cell Distribution Width 14.1 % (11.5-17.5); White Blood Count 17.2 K/mm3 (4.8-10.8)
[2020-11-21 19:13] LABS: Alanine Aminotransferase 114 U/L (12-78); Albumin Level 3.2 g/dl (3.5-5.0); Albumin/Globulin Ratio 0.9 (1.1-1.8); Anion Gap 10.8 mEq/L (5-15); Aspartate Amino Transferase 107 U/L (17-59); Bilirubin,Total 1.8 mg/dl (0.2-1.3); Blood Urea Nitrogen 21 mg/dl (9-20); Calcium 8.9 mg/dl (8.4-10.2); Carbon Dioxide 27 mmol/L (22.0-30.0); Chloride 96 mmol/L (98-107); Creatinine Clearance Estimated 65 mL/min (50-200); Estimated Glomerular Filt Rate 94 ml/min (>60); GFR (African American) 114 ML/MIN (>60); Globulin 3.6 g/dL (1.3-3.2); Glucose 112 mg/dl (74-100); Potassium 3.8 mmoL/L (3.5-5.1); Sodium 130 mmol/L (136-145); Total Protein,Serum 6.8 g/dl (6.3-8.2)
[2020-11-21 19:14] LABS: MANUAL DIFFERENTIAL MANUAL DIFFERENTIAL (MANUAL DIFF)
[2020-11-21 19:28] LABS: Alkaline Phosphatase 511 U/L (38-126)
[2020-11-21 20:01] LABS: Adenovirus,PCR Not Detected (NotDetected); Bordetella Pertussis Not Detected (NotDetected); Chlamydophila Pneumoniae, PCR Not Detected (NotDetected); Coronavirus 19, PCR Not Detected (NotDetected); Coronavirus 229E Not Detected (NotDetected); Coronavirus NL63 Not Detected (NotDetected); Coronavirus OC43 Not Detected (NotDetected); Coronovirus HKU1,PCR Not Detected (NotDetected); Human Metapneumovirus Not Detected (NotDetected); Influenza A, PCR Not Detected (NotDetected); Influenza AH1, 2009 Not Detected (NotDetected); Influenza AH1, PCR Not Detected (NotDetected); Influenza AH3,PCR Not Detected (NotDetected); Influenza B, PCR Not Detected (NotDetected); Mycoplasma Pneumoniae, PCR Not Detected (NotDetected); Parainfluenza 1, PCR Not Detected (NotDetected); Parainfluenza 2, PCR Not Detected (NotDetected); Parainfluenza 3, PCR Not Detected (NotDetected); Parainfluenza 4, PCR Not Detected (NotDetected); Respiratory Syncytial Virus Not Detected (NotDetected); Rhinovirus/Enterovirus Not Detected (NotDetected)
[2020-11-21 20:13] LABS: Activated Partial Thrombo Time 25.8 seconds (22.8-30.6); INR 1.07 (0.9-1.1); Prothrombin Time 12.6 seconds (10.1-12.5)
[2020-11-21 20:34] LABS: Eosinophils % 1 % (0-3); Lymphocytes % 7 % (10-50); Monocytes % 6 % (2-9); Neutrophils % 85 % (42-76); Total Cells Counted 100
[2020-11-21 20:35] LABS: Platelet Estimate Slight Increase
[2020-11-21 20:38] LABS: Stomatocytes 1+
[2020-11-21 20:39] LABS: Hypochromasia 1+
--- NOTE | 2020-11-21 20:51 | PC.NURSE ---
[id number] employee relations [employer] pharmacy notified of consult for heparin drip and APTT, pharmacy gave orders to bolus with 5600 units of heparin and then infuse heparin at 1200 units/hr
[2020-11-21 23:24] LABS: Activated Partial Thrombo Time 65.7 seconds (22.8-30.6)
--- NOTE | 2020-11-21 23:27 | PC.NURSE ---
[id number] Willie from pharmacy called and stated to leave heparin drip at 1200 units per hour and to do another PTT in one hour
[2020-11-22] VITALS (14 sets, daily range): BP systolic 116–136; BP diastolic 58–72; PULSE 86–98; RESP 16–20; TEMP 36.8–37.7; O2SAT 93–99; BMI 25.0
[2020-11-22 00:57] LABS: Activated Partial Thrombo Time 41.6 seconds (22.8-30.6)
--- NOTE | 2020-11-22 04:17 | PC.NURSE ---
pt is AxOx4, has rested well t/o shift, no complaints of SOA, chest pain, N/V/D, pain, lungs CTA, remains on room air with sats 95-99%, HR 98-99,
[2020-11-22 05:34] LABS: Eosinophils # 0.1 K/mm3 (0.0-0.4)
[2020-11-22 05:39] LABS: Basophils % 0.1 % (0.1-2.0); Eosinophils % 0.4 % (0.1-12.0); Lymphocytes # 1.4 K/mm3 (0.7-4.5); Lymphocytes % 9.7 % (10-50); Mean Corpuscular HGB Conc 30.3 g/dL (31.8-35.4); Mean Corpuscular Hemoglobin 26.4 pg (27.0-31.2); Mean Platelet Volume 8.1 fl (7.4-10.4); Monocytes # 0.8 K/mm3 (0.1-1.0); Monocytes % 5.7 % (1.7-9.3); Neutrophils # 11.7 K/mm3 (1.8-7.8); Neutrophils % 84.1 % (37.0-80.0); Platelet Count 375 K/mm3 (142-424); Red Blood Count 2.87 M/mm3 (4.60-6.20); White Blood Count 13.9 K/mm3 (4.8-10.8)
[2020-11-22 05:42] LABS: Chloride 101 mmol/L (98-107); Potassium 3.6 mmoL/L (3.5-5.1); Sodium 130 mmol/L (136-145)
[2020-11-22 05:43] LABS: Hemoglobin 7.6 g/dL (14.1-18.0)
[2020-11-22 05:44] LABS: Alanine Aminotransferase 87 U/L (12-78); Aspartate Amino Transferase 74 U/L (17-59); Blood Urea Nitrogen 16 mg/dl (9-20); Creatinine Clearance Estimated 66 mL/min (50-200); Estimated Glomerular Filt Rate 110 ml/min (>60); GFR (African American) 133 ML/MIN (>60)
[2020-11-22 05:45] LABS: Albumin Level 2.6 g/dl (3.5-5.0); Albumin/Globulin Ratio 0.9 (1.1-1.8); Alkaline Phosphatase 397 U/L (38-126); Anion Gap 7.6 mEq/L (5-15); Bilirubin,Total 1.4 mg/dl (0.2-1.3); Calcium 8.2 mg/dl (8.4-10.2); Carbon Dioxide 25 mmol/L (22.0-30.0); Glucose 114 mg/dl (74-100); Total Protein,Serum 5.6 g/dl (6.3-8.2)
[2020-11-22 05:56] LABS: Activated Partial Thrombo Time 37.6 seconds (22.8-30.6)
--- NOTE | 2020-11-22 06:15 | PC.NURSE ---
Addendum entered by Maty Avila RN 11/22/20 06:17: draw another PTT in 4 hours Original Note: [id number] Willie Verde called and stated to give a 4000 unit bolus now and increase gtt to 1600 units/hr
--- NOTE | 2020-11-22 06:38 | PC.NURSE ---
order for repeat H&H entered due to significant decrease in Hgb from 18:51 on 11/21
[2020-11-22 07:27] LABS: Hematocrit 26.5 % (42.0-52.0); Hemoglobin 8.3 g/dL (14.1-18.0)
--- NOTE | 2020-11-22 08:25 | HMH.HP ---
*Admission Date: 11/21/20 *Chief complaint: Portal vein thrombosis *History of present illness: 75-year-old male undergoing outpatient work-up for underlying malignancy due to 6 weeks of malaise with weight loss and poor appetite was found to have a portal vein thrombosis on CT scan performed as an outpatient yesterday. Decision was made to admit the patient for anticoagulation. Patient also was found to have a large liver mass on CT scan which will require further work-up. Other than patient's anorexia and nausea patient has denied any abdominal complaints. Patient was briefly hospitalized approximately 2 weeks ago due to acute kidney injury. At that time patient had mild elevation in LFTs. Plan was to pursue outpatient work-up for malignancy. Patient had gastroenterology consult during that hospitalization. Autoimmune and viral hepatitis labs have returned negative. CEA and CA 19-9 have also been negative. Additional work-up did reveal iron deficiency. Alpha-fetoprotein has been ordered during this hospitalization. Patient reports overall no change in his condition. He denies abdominal pain, blood in his urine or stools, vomiting or hematemesis. [facility] History I have reviewed the patient's past medical history: Yes Medical History: Reports:: Hyperlipidemia, Hypertension Denies:: Cancer, Diabetes Mellitus Type 2, MRSA *Have you ever received a pneumonia vaccine?: Yes *Have you received a flu vaccine this season?: Yes Laterality Cases: Left: Arthroscopy Shoulder - *Social History Alcohol Intake: never *Occupational Status:: retired Housing: house Household Members: other *Travel in the last 8 weeks: None Family Hx:: Cancer, Heart Attack Review of Systems - Constitutional Reports anorexia, Reports fatigue, Reports lack of energy, Reports malaise, Reports weight loss (Approximately 15 pounds), Denies body ache(s), Denies excessive sweating, Denies fever(s) - Eyes Denies blurry vision - ENT Denies difficulty swallowing - *Cardiovascular Denies chest pain, Denies chest pain at rest - *Respiratory Denies change in phlegm color, Denies chest congestion, Denies cough - *Gastrointestinal Denies abdominal pain, Denies belching, Denies bloating, Denies difficulty swallowing, Denies feeling full early, Denies incontinent of stools, Denies black, tarry stools, Denies pain with swallowing, Denies vomiting - *Genitourinary Denies difficulty urinating, Denies blood in urine - *Musculoskeletal Denies abnormal walking - Integumentary/Breasts Denies hair loss - *Neurologic Reports abnormal hearing - Psychiatric Reports lack of enjoyment, Reports change in appetite Meds Home Medications Medication Instructions Recorded Confirmed Type Benazepril HCl 10 mg PO DAILY 01/20/19 11/21/20 History Simvastatin 20 mg PO HS 01/20/19 11/21/20 History Amlodipine Besylate [Norvasc 5mg 5 mg PO DAILY 11/10/20 11/21/20 History tablet] Aspirin [Aspirin 81mg EC Tab] 81 mg PO DAILY 11/10/20 11/21/20 History Ferrous Sulfate [Ferrous Sulfate 325 mg PO DAILY 11/21/20 11/21/20 History 325mg Tab] Allergies Allergy/AdvReac Type Severity Reaction Status Date / Time No Known Allergies Allergy Verified 01/20/19 15:39 Exam Vital signs and Labs for Last 24 Hours: Temp Pulse Resp BP Pulse Ox 99.9 F H 98 H 16 129/71 98 11/22/20 08:00 11/22/20 08:00 11/22/20 08:00 11/22/20 08:00 11/22/20 08:00 Laboratory Results - last 24 hr 11/21/20 18:51: WBC 17.2 H, RBC 3.65 L, Hgb 10.1 L, Hct 31.6 L, MCV 86.5, MCH 27.5, MCHC 31.9, RDW 14.1, Plt Count 521 H, MPV 7.6, Neut % (Auto) 88.9 H, Lymph % (Auto) 7.5 L, [place] % (Auto) 3.0, Eos % (Auto) 0.3, Baso % (Auto) 0.2, Neut # (Auto) 15.3 H, Lymph # (Auto) 1.3, [place] # (Auto) 0.5, Eos # (Auto) 0.1, Baso # (Auto) 0.0, Total Counted 100, Neutrophils % (Manual) 85 H, Band Neutrophils % 1.0, Lymphocytes % (Manual) 7 L, Monocytes % (Manual) 6, Eosinophils % (Manual) 1, Platele
--- NOTE | 2020-11-22 09:38 | HMH.PHAVTE ---
[facility] Pharmacy VTE Monitoring - Patient Demographics Admission date: 11/21/20 Report Date: 11/22/20 Time: 09:39 Allergies/Adverse Reactions: Patient Allergies No Known Allergies Allergy (Verified 01/20/19 15:39) Height: 1.7 m Weight: 72.32 kg Patient Problems: Current Active Problems Hyponatremia (Acute) Portal vein thrombosis (Acute) Liver mass, right lobe (Acute) Essential hypertension (Acute) Weight loss (Acute) - VTE Risk Labs: VTE Related Lab Results Hgb 8.3 g/dL (14.1-18.0) L 11/22/20 07:16 Hct 26.5 % (42.0-52.0) L 11/22/20 07:16 Plt Count 375 K/mm3 (142-424) D 11/22/20 05:00 PT 12.6 seconds (10.1-12.5) H 11/21/20 19:40 INR 1.07 (0.9-1.1) 11/21/20 19:40 APTT 37.6 seconds (22.8-30.6) H 11/22/20 05:00 BUN 16 mg/dl (9-20) 11/22/20 05:00 Creatinine 0.70 mg/dl (0.66-1.25) 11/22/20 05:00 Estimated Creat Clear 66 mL/min (50-200) 11/22/20 05:00 VTE Score: 1 - Prophylaxis VTE Prophylaxis Ordered?: Yes Types of VTE Prophylaxis: Pharmacological Pharmacologic Type: Enoxaparin
--- NOTE | 2020-11-22 09:40 | HMH.PHAINT ---
HOME MEDICATIONS RECONCILED BY USING RX BOTTLES. ASPIRIN WILL NOT BE RESTARTED PER DR CAMPUZANO.
--- NOTE | 2020-11-22 15:52 | PC.NURSE ---
PT IS RESTING IN BED. NO COMPLAINTS OF DISCOMFORT. ALERT AND ORIENTED X4. TOLERATING BLOOD TRANSFUSION WELL. PCP REQUESTED FOR PT TO HAVE 1 UNIT OF PRBC'S AND TO PUT THE OTHER UNIT ON HOLD FOR NOW. EATING AND DRINKING WELL. ABDOMEN SOFT/NON TENDER WITH ACTIVE BOWEL SOUNDS. PT STATES HIS LAST BOWEL MOVEMENT WAS YESTERDAY. LUNG SOUNDS CLEAR. TRACE OF EDEMA NOTED TO BLE. VSS. WILL CONTINUE TO MONITOR.
[2020-11-22 18:14] LABS: Hematocrit 29.3 % (42.0-52.0)
[2020-11-22 18:16] LABS: Hemoglobin 9.2 g/dL (14.1-18.0)
[2020-11-23 04:00] VITALS: BP 135/71; PULSE 93; RESP 17; TEMP 37; O2SAT 95
--- NOTE | 2020-11-23 04:50 | PC.NURSE ---
pt is AxOx4, has rested most of shift, has not had any complaint of SOA, chest pain, N/V/D, bowel sounds active and abdomen is soft and non-tender, remains on room air, lungs CTA
[2020-11-23 05:53] VITALS: BMI 25.0
[2020-11-23 08:00] VITALS: BP 129/70; PULSE 86; RESP 16; TEMP 37.2; O2SAT 94
--- NOTE | 2020-11-23 08:26 | HMH.ACPN2 ---
Internal Medicine - PN: Subj *Date: 11/23/20 *Time: 08:26 Interval history: Patient has no complaints this morning. He does feel better after his unit of blood yesterday. Denies any blood in his stools. Patient is on clear liquids at this moment and will begin bowel prep this evening Exam Vital signs and Labs for Last 24 Hours: Temp Pulse Resp BP Pulse Ox 98.9 F 86 16 129/70 94 L 11/23/20 08:00 11/23/20 08:00 11/23/20 08:00 11/23/20 08:00 11/23/20 08:00 Laboratory Results - last 24 hr 11/22/20 07:16: Blood Type Confirm A Positive 11/22/20 11:05: Blood Type A Positive, Antibody Screen Negative, Crossmatch (AHG) See Detail 11/22/20 18:00: Hgb 9.2 L D, Hct 29.3 L I & O for Last 24 hours: Intake & Output 11/20/20 11/21/20 11/22/20 11/23/20 11:59 11:59 11:59 11:59 Intake Total 360 / 360 1795 / 1795 Output Total 500 / 500 1350 / 1350 Balance -140 / -140 445 / 445 Weight 159 lb 7 oz 159 lb 9 oz - Constitutional no acute distress - *Routine Respiratory Exam Present: CTA bilaterally - *Routine Cardiovascular Exam Present: RRR - *Routine Abdominal Exam Present: soft, normoactive bowel sounds. Absent: tenderness Assessment and Plan (1) Portal vein thrombosis Status: Acute Category: Medical Code(s): I81 - Portal vein thrombosis (2) Liver mass, right lobe Status: Acute Category: Medical Code(s): R16.0 - Hepatomegaly, not elsewhere classified (3) Essential hypertension Status: Acute Category: Medical Code(s): I10 - Essential (primary) hypertension (4) Weight loss Status: Acute Category: Medical Code(s): R63.4 - Abnormal weight loss (5) Hyponatremia Status: Acute Category: Medical Code(s): E87.1 - Hypo-osmolality and hyponatremia - Assessment and plan all Dx Assessment and Plan for all problems:: 1. Continue Lovenox 1 mg/kg subcu every 12 2. Begin bowel prep this evening for EGD and colonoscopy tomorrow by Dr. Fernández.
[2020-11-23 08:37] LABS: Monocytes # 0.6 K/mm3 (0.1-1.0)
[2020-11-23 08:44] LABS: Chloride 103 mmol/L (98-107); Potassium 3.7 mmoL/L (3.5-5.1); Sodium 134 mmol/L (136-145)
[2020-11-23 08:46] LABS: Blood Urea Nitrogen 15 mg/dl (9-20); Creatinine Clearance Estimated 66 mL/min (50-200); Estimated Glomerular Filt Rate 110 ml/min (>60); GFR (African American) 133 ML/MIN (>60)
[2020-11-23 08:47] LABS: Alanine Aminotransferase 88 U/L (12-78); Albumin Level 2.5 g/dl (3.5-5.0); Albumin/Globulin Ratio 0.9 (1.1-1.8); Alkaline Phosphatase 348 U/L (38-126); Anion Gap 9.7 mEq/L (5-15); Aspartate Amino Transferase 57 U/L (17-59); Bilirubin,Total 1.4 mg/dl (0.2-1.3); Calcium 8.3 mg/dl (8.4-10.2); Carbon Dioxide 25 mmol/L (22.0-30.0); Globulin 2.9 g/dL (1.3-3.2); Glucose 150 mg/dl (74-100); Total Protein,Serum 5.4 g/dl (6.3-8.2)
[2020-11-23 09:00] LABS: Basophils % 0.1 % (0.1-2.0); Eosinophils % 0.3 % (0.1-12.0); Hematocrit 26.2 % (42.0-52.0); Hemoglobin 8.1 g/dL (14.1-18.0); Lymphocytes % 7.3 % (10-50); Mean Corpuscular Hemoglobin 27.2 pg (27.0-31.2); Mean Corpuscular Volume 87.8 fl (80-94); Mean Platelet Volume 7.9 fl (7.4-10.4); Neutrophils # 12.5 K/mm3 (1.8-7.8); Neutrophils % 88.3 % (37.0-80.0); Platelet Count 383 K/mm3 (142-424); Red Blood Count 2.99 M/mm3 (4.60-6.20); Red Cell Distribution Width 14.3 % (11.5-17.5); White Blood Count 14.1 K/mm3 (4.8-10.8)
[2020-11-23 09:01] LABS: MANUAL DIFFERENTIAL MANUAL DIFFERENTIAL (MANUAL DIFF)
[2020-11-23 09:58] LABS: Hypochromasia 2+; Lymphocytes % 12 % (10-50); Monocytes % 5 % (2-9); Neutrophils % 83 % (42-76); Platelet Estimate Normal; Total Cells Counted 100
[2020-11-23 15:57] VITALS: BP 138/68; PULSE 88; RESP 20; TEMP 36.9; O2SAT 98
[2020-11-23 20:00] VITALS: BP 112/61; PULSE 84; RESP 20; TEMP 36.5; O2SAT 98
--- NOTE | 2020-11-23 21:35 | PC.NURSE ---
PT IS SITTING UP IN THE CHAIR. ALERT AND ORIENTED X4. VERY [place]. PT TOLERATED 1700 BOWEL PREP WELL BUT HAD NOT HAD A BOWEL MOVEMENT YET. LUNG SOUNDS CLEAR. ABDOMEN SOFT/NON TENDER WITH ACTIVE BOWEL SOUNDS. EDEMA NOTED TO BLE. VSS. WILL CONTINUE TO MONITOR.
[2020-11-24] VITALS (17 sets, daily range): BP systolic 80–139; BP diastolic 49–78; PULSE 70–101; RESP 12–20; TEMP 36.3–36.8; O2SAT 94–99; BMI 25.0; BMI 24.9
--- NOTE | 2020-11-24 05:52 | PC.NURSE ---
pt AxOx4, has had multiple bowel movements this shift, 0500 bowel prep completed, abdomen soft and non tender, bowel sounds active, no complaints of pain, SOA this shift, remains on room air,
[2020-11-24 07:02] LABS: Basophils % 0.3 % (0.1-2.0); Eosinophils % 0.2 % (0.1-12.0); Monocytes # 0.5 K/mm3 (0.1-1.0); Monocytes % 3.9 % (1.7-9.3); Red Cell Distribution Width 14.3 % (11.5-17.5)
[2020-11-24 07:08] LABS: Chloride 107 mmol/L (98-107); Sodium 139 mmol/L (136-145)
[2020-11-24 07:09] LABS: Potassium 3.7 mmoL/L (3.5-5.1)
[2020-11-24 07:11] LABS: Alanine Aminotransferase 87 U/L (12-78); Alkaline Phosphatase 415 U/L (38-126); Aspartate Amino Transferase 54 U/L (17-59); Bilirubin,Total 1.4 mg/dl (0.2-1.3); Blood Urea Nitrogen 18 mg/dl (9-20); Creatinine Clearance Estimated 66 mL/min (50-200); Estimated Glomerular Filt Rate 110 ml/min (>60); GFR (African American) 133 ML/MIN (>60)
[2020-11-24 07:12] LABS: Albumin Level 2.9 g/dl (3.5-5.0); Albumin/Globulin Ratio 0.9 (1.1-1.8); Anion Gap 9.7 mEq/L (5-15); Carbon Dioxide 26 mmol/L (22.0-30.0); Globulin 3.3 g/dL (1.3-3.2); Glucose 108 mg/dl (74-100); Total Protein,Serum 6.2 g/dl (6.3-8.2)
[2020-11-24 07:19] LABS: Calcium 9.3 mg/dl (8.4-10.2)
--- NOTE | 2020-11-24 07:31 | HMH.ACPN2 ---
Internal Medicine - PN: Subj *Date: 11/24/20 *Time: 07:31 Interval history: Patient has no complaints this morning. He reports he feels well. Patient has completed his bowel prep in anticipation of both EGD and colonoscopy today. Exam Vital signs and Labs for Last 24 Hours: Temp Pulse Resp BP Pulse Ox 98.2 F 82 16 126/72 96 11/24/20 04:00 11/24/20 04:00 11/24/20 04:00 11/24/20 04:00 11/24/20 04:00 Laboratory Results - last 24 hr 11/23/20 08:27: WBC 14.1 H, RBC 2.99 L, Hgb 8.1 L D, Hct 26.2 L, MCV 87.8, MCH 27.2, MCHC 31.0 L, RDW 14.3, Plt Count 383, MPV 7.9, Neut % (Auto) 88.3 H, Lymph % (Auto) 7.3 L, [place] % (Auto) 4.0, Eos % (Auto) 0.3, Baso % (Auto) 0.1, Neut # (Auto) 12.5 H, Lymph # (Auto) 1.0, [place] # (Auto) 0.6, Eos # (Auto) 0.0, Baso # (Auto) 0.0, Total Counted 100, Neutrophils % (Manual) 83 H, Lymphocytes % (Manual) 12, Monocytes % (Manual) 5, Platelet Estimate Normal, Hypochromasia 2+ 11/23/20 08:27: Sodium 134 L, Potassium 3.7, Chloride 103, Carbon Dioxide 25, Anion Gap 9.7, BUN 15, Creatinine 0.70, Estimated Creat Clear 66, Estimated GFR 110, Est GFR ( Amer) 133, Glucose 150 H, Calcium 8.3 L, Total Bilirubin 1.4 H, AST 57, ALT 88 H, Alkaline Phosphatase 348 H, Total Protein 5.4 L, Albumin 2.5 L, Globulin 2.9, Albumin/Globulin Ratio 0.9 L 11/24/20 06:48: Sodium 139, Potassium 3.7, Chloride 107, Carbon Dioxide 26, Anion Gap 9.7, BUN 18, Creatinine 0.70, Estimated Creat Clear 66, Estimated GFR 110, Est GFR ( Amer) 133, Glucose 108 H D, Calcium 9.3 D, Total Bilirubin 1.4 H, AST 54, ALT 87 H, Alkaline Phosphatase 415 H, Total Protein 6.2 L, Albumin 2.9 L D, Globulin 3.3 H, Albumin/Globulin Ratio 0.9 L I & O for Last 24 hours: Intake & Output 11/21/20 11/22/20 11/23/20 11/24/20 11:59 11:59 11:59 11:59 Intake Total 360 / 360 1795 / 1795 240 / 240 Output Total 500 / 500 1350 / 1350 Balance -140 / -140 445 / 445 240 / 240 Weight 159 lb 7 oz 159 lb 9 oz 159 lb 9 oz Microbiology Reports for the Last 24 Hours: Microbiology 11/21/20 19:40 Blood Blood Culture - Preliminary NO GROWTH AFTER 48 HOURS 11/21/20 19:40 Blood Blood Culture - Preliminary NO GROWTH AFTER 48 HOURS - Constitutional no acute distress - *Routine Respiratory Exam Present: CTA bilaterally - *Routine Cardiovascular Exam Present: RRR - *Routine Abdominal Exam Present: soft, normoactive bowel sounds. Absent: tenderness Assessment and Plan (1) Portal vein thrombosis Status: Acute Category: Medical Code(s): I81 - Portal vein thrombosis (2) Liver mass, right lobe Status: Acute Category: Medical Code(s): R16.0 - Hepatomegaly, not elsewhere classified (3) Essential hypertension Status: Acute Category: Medical Code(s): I10 - Essential (primary) hypertension (4) Weight loss Status: Acute Category: Medical Code(s): R63.4 - Abnormal weight loss (5) Hyponatremia Status: Acute Category: Medical Code(s): E87.1 - Hypo-osmolality and hyponatremia - Assessment and plan all Dx Assessment and Plan for all problems:: 1. EGD and colonoscopy today by Dr. Fernández with further decision making after scopes 2. Lovenox was discontinued this morning with his last dose being approximately 12 hours ago. Anticoagulation will be started after scopes and further decisions on the liver mass
[2020-11-24 07:39] LABS: Hematocrit 30.8 % (42.0-52.0); Lymphocytes % 7.7 % (10-50); Mean Corpuscular HGB Conc 29.8 g/dL (31.8-35.4); Mean Corpuscular Hemoglobin 26.2 pg (27.0-31.2); Mean Corpuscular Volume 87.9 fl (80-94); Mean Platelet Volume 7.8 fl (7.4-10.4); Neutrophils # 11.2 K/mm3 (1.8-7.8); Platelet Count 524 K/mm3 (142-424); White Blood Count 12.7 K/mm3 (4.8-10.8)
[2020-11-24 07:48] LABS: Hemoglobin 9.2 g/dL (14.1-18.0)
[2020-11-24 07:50] LABS: MANUAL DIFFERENTIAL MANUAL DIFFERENTIAL (MANUAL DIFF)
--- NOTE | 2020-11-24 08:55 | HMH.ANESCL ---
[facility] Anesthesia Checklist - Patient Identification Patient Identification: Arm Band - Structural Data Admitted From: Inpatient Planned Operative Procedure/s: egd/colonoscopy Consent for Planned Operative Procedure(s) Verified: Yes Verified Documents: Surgical Consent, History and Physical - NPO Status Verified Time NPO: 00:00 - Additional verifications Anesthesia Reactions: No - Airway Assessment C-Spine Mobility Assessed: Yes (mp2) TMJ Mobility Assessed: Yes Dentition: Good Dentition - Neurological Assessment Level of Consciousness: Awake, Alert - Anesthesia Plan Anesthesia Risk discussed: Yes Anesthesia Plan: Verified ASA Class: II Anesthesia Type: MAC [facility] History I have reviewed the patient's past medical history: Yes Medical History: Reports:: Hyperlipidemia, Hypertension Denies:: Cancer, Diabetes Mellitus Type 2, MRSA *Have you ever received a pneumonia vaccine?: Yes *Have you received a flu vaccine this season?: Yes Anesthesia experience/problems:: nac Laterality Cases: Left: Arthroscopy Shoulder - *Social History Alcohol Intake: never Substance Use Type: denies use *Occupational Status:: retired Housing: house Household Members: other *Travel in the last 8 weeks: None Family Hx:: Cancer, Heart Attack
--- NOTE | 2020-11-24 09:10 | HMH.PROC ---
[facility] Procedure Note Procedure Note:: Upper Endoscopy Procedure Report: Esophagogastroduodenoscopy with cold biopsies Endoscopost: Robert Fernández II, MD Referring Physician: Jerome Downs MD/Thelma Mueller M.D. Date of Procedure: November 22, 2020 Equipment: Olympus GIF 190 standard upper endoscope Sedation: MAC sedation Indications: Mr. Badillo is a 75-year-old gentleman who was admitted with dehydration, fatigue and elevated liver chemistries/transaminitis. The patient did have some elevation of his liver chemistries with ALT 210 and alkaline phosphatase 383. The patient did have a CT scan of the abdomen and pelvis on November 21, 2020 showing a large liver lesion that was 7.3 x 6.1 x 12 cm in the liver segment 6 and 7 in the right lobe of the liver. There was also evidence of thrombosis of the right portal vein. The patient has had anemia with hemoglobin 10.1 and hematocrit 30.5. His alkaline phosphatase on this admission increased to 485. The patient's CEA 2.9 and CA 19-9 15 were normal. He did have an elevated PSA level (6.9). The patient also had colonic diverticulosis. Procedure: Prior to the procedure, a history and physical exam was performed, and patient's medications and allergies were reviewed. The risks, benefits and alternatives of the sedation and procedure were discussed with the patient. All questions were answered and informed consent was obtained. The patient was brought to the procedure room. Patient identification and proposed procedure were verified by the physician and the nurse. The patient was placed in a left lateral decubitus position and the scope was passed under direct vision. Throughout the procedure, the patient's blood pressure, pulse, and oxygen saturations were monitored continuously. The upper GI endoscopy was accomplished without difficulty. The patient tolerated the procedure well. Findings: The scope was passed directly into the upper esophagus and advanced to the third portion of the duodenum. The post bulbar duodenum and duodenal bulb were normal with normal mucosa and conniventes. The scope was withdrawn through a normal duodenal bulb and pylorus into the stomach. There was some reactive gastropathy of the antrum. There was chronic gastritis with superficial ulceration and coffee-ground in the body and fundus. Along the posterior wall there was the very superficial ulceration with minor irregular margins. Biopsies were taken. Upon retroflexion there was no hiatal hernia and no gastric varices. The scope was then withdrawn into the esophagus. There was no evidence of esophageal varices or reflux esophagitis. The remainder of the esophageal mucosa was normal. Impression: 1. Superficial gastric ulceration (posterior wall body of stomach) with moderate chronic gastritis and mild gastropathy (antrum) Plan: I will follow-up the biopsies. I will proceed with diagnostic colonoscopy. I will check results of alpha-fetoprotein. This may represent primary hepatocellular carcinoma or cholangiocarcinoma. If colonoscopy is negative, will likely discuss with hepatobiliary surgery at the [facility].
[2020-11-24 09:16] LABS: Hypochromasia 1+; Lymphocytes % 8 % (10-50); Monocytes % 4 % (2-9); Neutrophils % 88 % (42-76); Platelet Estimate Normal; Total Cells Counted 100
--- NOTE | 2020-11-24 09:28 | P.PCN_ITS ---
[facility] Procedure Note Procedure Note:: Colonoscopy Procedure Report: Colonoscopy Endoscopist: Robert Fernández II, MD Referring physician: Jerome Downs MD/Thelma Mueller M.D. Date of Procedure: November 24, 2020 Equipment: Olympus 190 variable stiffness pediatric colonoscope Sedation: MAC sedation Indication: Mr. Badillo is a 75-year-old gentleman with elevated liver chemistries and dehydration. He had a CAT scan on November 10, 2020 and this was repeated with and without contrast on November 21, 2020. The more recent scan shows a large right lobe liver mass lesion that is 7.3 x 6.1 x 12 cm. There was also evidence of portal vein thrombosis. The patient has had elevated alkaline phosphatase and transaminases (alkaline phosphatase 485 and ALT 96 and total bilirubin 2.7). The patient's CEA 2.9 and CA 19-9 15 were normal. The patient did have a slightly elevated PSA (6.9). The patient reports no abdominal pain. He reports no rectal bleeding, weight loss or family history of colon cancer. His CAT scan did show colonic diverticulosis. Procedure: Prior to the procedure, a history and physical exam was performed, and patient's medications and allergies were reviewed. The risks, benefits and alternatives of the sedation and procedure were discussed with the patient. All questions were answered and informed consent was obtained. The patient was brought to the procedure room. Patient identification and proposed procedure were verified by the physician and the nurse. The patient was placed in a left lateral decubitus position and the scope was passed under direct vision. Throughout the procedure, the patient's blood pressure, pulse, and oxygen saturations were monitored continuously. The colonoscopy was accomplished without difficulty. The patient tolerated the procedure well. Findings: On digital rectal examination there was normal rectal tone. There were no external hemorrhoids but there was some hemorrhoidal prolapse. The prostate was 2+ with some firmness and possible early nodule in the left upper margin. The colonoscope was introduced through the anal canal to the rectum and advanced to the cecum. The ileocecal valve and appendiceal orifice were identified. The scope was advanced a short distance into the ileum which appeared grossly normal. The scope was then withdrawn into the colon. The cecum, ascending and transverse colon and mucosa were grossly normal. There were scattered extensive diverticuli throughout the colon but more predominantly in the descending and sigmoid colon (LEFT colon). The rectum itself was normal. Upon retroflexion within the rectum there were large grade 2-3 internal hemorrhoids. The preparation was excellent throughout with Dilley Preparation Score of 9. The cecal time was 12 minutes. Impression: 1. Extensive pandiverticulosis 2. Grade 2-3 internal hemorrhoids 3. Small left upper margin prostate nodule/irregularity Plan: I will check alpha-fetoprotein level. My concern is possible primary HCC (hepatocellular carcinoma) or cholangiocarcinoma. Percutaneous biopsies can seed the tract. I will discuss with hepatobiliary surgery at the [facility]. Given location, this would not be resectable especially with portal vein thrombosis which is likely malignant thrombus. I would certainly respect patient's desire to pursue additional evaluations/treatment based upon the likelihood of advanced malignancy and prognosis.
[2020-11-24 13:02] LABS: CA 19-9 18 U/mL (0-35); CEA 3.9 ng/mL (0.0-4.7)
[2020-11-24 13:03] LABS: AFP, Tumor Marker 1.8 ng/mL (0.0-8.3)
[2020-11-24 14:10] LABS: Activated Partial Thrombo Time 26.5 seconds (22.8-30.6); INR 1.05 (0.9-1.1); Prothrombin Time 12.3 seconds (10.1-12.5)
[2020-11-24 14:14] LABS: Basophils % 0.2 % (0.1-2.0); Eosinophils % 0.1 % (0.1-12.0); Hematocrit 29.3 % (42.0-52.0); Hemoglobin 9.3 g/dL (14.1-18.0); Lymphocytes % 7.2 % (10-50); Mean Corpuscular HGB Conc 31.8 g/dL (31.8-35.4); Mean Corpuscular Hemoglobin 27.3 pg (27.0-31.2); Mean Corpuscular Volume 85.7 fl (80-94); Monocytes # 0.4 K/mm3 (0.1-1.0); Neutrophils # 12.1 K/mm3 (1.8-7.8); Neutrophils % 89.5 % (37.0-80.0); Platelet Count 450 K/mm3 (142-424); Red Blood Count 3.42 M/mm3 (4.60-6.20); Red Cell Distribution Width 14.6 % (11.5-17.5); White Blood Count 13.6 K/mm3 (4.8-10.8)
--- NOTE | 2020-11-24 15:21 | PC.NURSE ---
PT IS RESTING IN BED. TOLERATED PROCEDURE WELL THIS MORNING. WANTS PT TO HAVE A LIVER BIOPSY. RADIOLOGY CALLED AND STATED THAT THEY WOULD SCHEDULE THE BIOPSY FOR TOMORROW MORNING AT 0800. ORDERS WERE GIVEN FOR LAB WORK, NPO AFTER MIDNIGHT, NO BLOOD THINNERS. PT STATED HE WAS OKAY WITH HAVING BIOPSY TOMORROW. PT HAS BEEN AMBULATING IN THE ROOM AND TO THE BATHROOM. EATING AND DRINKING WELL. NO COMPLAINTS OF DISCOMFORT. EDEMA NOTED TO BLE. LUNG SOUNDS CLEAR. ABDOMEN SOFT/NON TENDER WITH SOME BRUISING FROM LOVENOX INJECTIONS. VSS. WILL CONTINUE TO MONITOR.
--- NOTE | 2020-11-24 15:59 | HMH.ACPN ---
Internal Medicine - PN: Subj *Date: 11/24/20 *Time: 15:59 Exam Vital signs and Labs for Last 24 Hours: Temp Pulse Resp BP Pulse Ox 97.9 F 80 16 137/78 95 11/24/20 13:30 11/24/20 13:30 11/24/20 13:30 11/24/20 13:30 11/24/20 13:30 Laboratory Results - last 24 hr 11/21/20 18:03: Carcinoembryonic Ag 3.9, CA 19-9 Antigen 18 11/21/20 18:03: Tumor Marker AFP 1.8 11/24/20 06:48: WBC 12.7 H, RBC 3.50 L, Hgb 9.2 L D, Hct 30.8 L, MCV 87.9, MCH 26.2 L, MCHC 29.8 L, RDW 14.3, Plt Count 524 H D, MPV 7.8, Neut % (Auto) 88.0 H, Lymph % (Auto) 7.7 L, [place] % (Auto) 3.9, Eos % (Auto) 0.2, Baso % (Auto) 0.3, Neut # (Auto) 11.2 H, Lymph # (Auto) 1.0, [place] # (Auto) 0.5, Eos # (Auto) 0.0, Baso # (Auto) 0.0, Total Counted 100, Neutrophils % (Manual) 88 H, Lymphocytes % (Manual) 8 L, Monocytes % (Manual) 4, Platelet Estimate Normal, Hypochromasia 1+ 11/24/20 06:48: Sodium 139, Potassium 3.7, Chloride 107, Carbon Dioxide 26, Anion Gap 9.7, BUN 18, Creatinine 0.70, Estimated Creat Clear 66, Estimated GFR 110, Est GFR ( Amer) 133, Glucose 108 H D, Calcium 9.3 D, Total Bilirubin 1.4 H, AST 54, ALT 87 H, Alkaline Phosphatase 415 H, Total Protein 6.2 L, Albumin 2.9 L D, Globulin 3.3 H, Albumin/Globulin Ratio 0.9 L 11/24/20 13:45: WBC 13.6 H, RBC 3.42 L, Hgb 9.3 L, Hct 29.3 L, MCV 85.7, MCH 27.3, MCHC 31.8, RDW 14.6, Plt Count 450 H, MPV 8.0, Neut % (Auto) 89.5 H, Lymph % (Auto) 7.2 L, [place] % (Auto) 3.0, Eos % (Auto) 0.1, Baso % (Auto) 0.2, Neut # (Auto) 12.1 H, Lymph # (Auto) 1.0, [place] # (Auto) 0.4, Eos # (Auto) 0.0, Baso # (Auto) 0.0 11/24/20 13:45: PT 12.3, INR 1.05, APTT 26.5 I & O for Last 24 hours: Intake & Output 11/21/20 11/22/20 11/23/20 11/24/20 23:59 23:59 23:59 23:59 Intake Total 1675 / 1675 720 / 720 120 / 120 Output Total 200 / 200 900 / 900 750 / 750 Balance -200 / -200 775 / 775 -30 / -30 120 / 120 Weight 70.364 kg 72.32 kg 72.376 kg 72 kg Microbiology Reports for the Last 24 Hours: Microbiology 11/21/20 19:40 Blood Blood Culture - Preliminary NO GROWTH AFTER 48 HOURS 11/21/20 19:40 Blood Blood Culture - Preliminary NO GROWTH AFTER 48 HOURS Assessment and Plan (1) Portal vein thrombosis Status: Acute Category: Medical Code(s): I81 - Portal vein thrombosis (2) Liver mass, right lobe Status: Acute Category: Medical Code(s): R16.0 - Hepatomegaly, not elsewhere classified (3) Essential hypertension Status: Acute Category: Medical Code(s): I10 - Essential (primary) hypertension (4) Weight loss Status: Acute Category: Medical Code(s): R63.4 - Abnormal weight loss (5) Hyponatremia Status: Acute Category: Medical Code(s): E87.1 - Hypo-osmolality and hyponatremia The patient's infection will respond to the chosen ABx?: Yes Is the patient receiving the right drug, dose, and route?: Yes Could a more targeted ABx be ordered?: No
[2020-11-25] VITALS (14 sets, daily range): BP systolic 109–152; BP diastolic 54–83; PULSE 81–97; RESP 16–19; TEMP 36.4–36.9; O2SAT 95–99; BMI 24.5
--- NOTE | 2020-11-25 05:36 | PC.NURSE ---
pt has rested well this shift, has ambulated in room, NPO since midnight, remains on room air, lungs CTA, has reported several loose stools this shift, abdomen soft and non tender
[2020-11-25 06:28] LABS: Basophils % 0.1 % (0.1-2.0); Eosinophils % 0.2 % (0.1-12.0); Hematocrit 29.2 % (42.0-52.0); Hemoglobin 9.2 g/dL (14.1-18.0); Lymphocytes # 0.9 K/mm3 (0.7-4.5); Lymphocytes % 7.6 % (10-50); Mean Corpuscular HGB Conc 31.6 g/dL (31.8-35.4); Mean Corpuscular Hemoglobin 27.3 pg (27.0-31.2); Mean Corpuscular Volume 86.4 fl (80-94); Mean Platelet Volume 7.6 fl (7.4-10.4); Monocytes # 0.5 K/mm3 (0.1-1.0); Monocytes % 3.8 % (1.7-9.3); Neutrophils # 10.9 K/mm3 (1.8-7.8); Neutrophils % 88.4 % (37.0-80.0); Platelet Count 436 K/mm3 (142-424); Red Blood Count 3.38 M/mm3 (4.60-6.20); Red Cell Distribution Width 14.6 % (11.5-17.5); White Blood Count 12.3 K/mm3 (4.8-10.8)
[2020-11-25 06:29] LABS: Chloride 109 mmol/L (98-107); Potassium 3.7 mmoL/L (3.5-5.1); Sodium 138 mmol/L (136-145)
[2020-11-25 06:32] LABS: Alanine Aminotransferase 81 U/L (12-78); Albumin Level 2.5 g/dl (3.5-5.0); Albumin/Globulin Ratio 0.8 (1.1-1.8); Alkaline Phosphatase 344 U/L (38-126); Anion Gap 6.7 mEq/L (5-15); Aspartate Amino Transferase 63 U/L (17-59); Bilirubin,Total 0.9 mg/dl (0.2-1.3); Blood Urea Nitrogen 21 mg/dl (9-20); Carbon Dioxide 26 mmol/L (22.0-30.0); Creatinine Clearance Estimated 65 mL/min (50-200); Estimated Glomerular Filt Rate 110 ml/min (>60); GFR (African American) 133 ML/MIN (>60); Total Protein,Serum 5.5 g/dl (6.3-8.2)
[2020-11-25 06:33] LABS: Calcium 8.7 mg/dl (8.4-10.2); Glucose 110 mg/dl (74-100)
[2020-11-25 06:37] LABS: MANUAL DIFFERENTIAL MANUAL DIFFERENTIAL (MANUAL DIFF)
[2020-11-25 06:39] LABS: Prothrombin Time 11.8 seconds (10.1-12.5)
--- NOTE | 2020-11-25 07:23 | HMH.ACPN2 ---
Internal Medicine - PN: Subj *Date: 11/25/20 *Time: 07:23 Interval history: Patient underwent EGD and colonoscopy yesterday. Patient was found to have a superficial gastric ulcer. He is scheduled for liver biopsy today. He denies abdominal pain Exam Vital signs and Labs for Last 24 Hours: Temp Pulse Resp BP Pulse Ox 98.3 F 91 H 16 140/79 95 11/25/20 04:00 11/25/20 04:00 11/25/20 04:00 11/25/20 04:00 11/25/20 04:00 Laboratory Results - last 24 hr 11/21/20 18:03: Carcinoembryonic Ag 3.9, CA 19-9 Antigen 18 11/21/20 18:03: Tumor Marker AFP 1.8 11/24/20 06:48: WBC 12.7 H, RBC 3.50 L, Hgb 9.2 L D, Hct 30.8 L, MCV 87.9, MCH 26.2 L, MCHC 29.8 L, RDW 14.3, Plt Count 524 H D, MPV 7.8, Neut % (Auto) 88.0 H, Lymph % (Auto) 7.7 L, [place] % (Auto) 3.9, Eos % (Auto) 0.2, Baso % (Auto) 0.3, Neut # (Auto) 11.2 H, Lymph # (Auto) 1.0, [place] # (Auto) 0.5, Eos # (Auto) 0.0, Baso # (Auto) 0.0, Total Counted 100, Neutrophils % (Manual) 88 H, Lymphocytes % (Manual) 8 L, Monocytes % (Manual) 4, Platelet Estimate Normal, Hypochromasia 1+ 11/24/20 13:45: WBC 13.6 H, RBC 3.42 L, Hgb 9.3 L, Hct 29.3 L, MCV 85.7, MCH 27.3, MCHC 31.8, RDW 14.6, Plt Count 450 H, MPV 8.0, Neut % (Auto) 89.5 H, Lymph % (Auto) 7.2 L, [place] % (Auto) 3.0, Eos % (Auto) 0.1, Baso % (Auto) 0.2, Neut # (Auto) 12.1 H, Lymph # (Auto) 1.0, [place] # (Auto) 0.4, Eos # (Auto) 0.0, Baso # (Auto) 0.0 11/24/20 13:45: PT 12.3, INR 1.05, APTT 26.5 11/25/20 05:53: WBC 12.3 H, RBC 3.38 L, Hgb 9.2 L, Hct 29.2 L, MCV 86.4, MCH 27.3, MCHC 31.6 L, RDW 14.6, Plt Count 436 H, MPV 7.6, Neut % (Auto) 88.4 H, Lymph % (Auto) 7.6 L, [place] % (Auto) 3.8, Eos % (Auto) 0.2, Baso % (Auto) 0.1, Neut # (Auto) 10.9 H, Lymph # (Auto) 0.9, [place] # (Auto) 0.5, Eos # (Auto) 0.0, Baso # (Auto) 0.0 11/25/20 05:53: Sodium 138, Potassium 3.7, Chloride 109 H, Carbon Dioxide 26, Anion Gap 6.7, BUN 21 H, Creatinine 0.70, Estimated Creat Clear 65, Estimated GFR 110, Est GFR ( Amer) 133, Glucose 110 H, Calcium 8.7, Total Bilirubin 0.9, AST 63 H, ALT 81 H, Alkaline Phosphatase 344 H, Total Protein 5.5 L, Albumin 2.5 L D, Globulin 3.0, Albumin/Globulin Ratio 0.8 L 11/25/20 05:53: PT 11.8, INR 1.00 I & O for Last 24 hours: Intake & Output 11/22/20 11/23/20 11/24/20 11/25/20 11:59 11:59 11:59 11:59 Intake Total 360 / 360 1795 / 1795 240 / 240 290 / 290 Output Total 500 / 500 1350 / 1350 Balance -140 / -140 445 / 445 240 / 240 290 / 290 Weight 159 lb 7 oz 159 lb 9 oz 159 lb 9 oz 156 lb 7 oz - Constitutional no acute distress - *Routine Respiratory Exam Present: CTA bilaterally - *Routine Cardiovascular Exam Present: RRR - *Routine Abdominal Exam Present: soft, normoactive bowel sounds. Absent: tenderness Assessment and Plan (1) Portal vein thrombosis Status: Acute Category: Medical Code(s): I81 - Portal vein thrombosis (2) Liver mass, right lobe Status: Acute Category: Medical Code(s): R16.0 - Hepatomegaly, not elsewhere classified (3) Essential hypertension Status: Acute Category: Medical Code(s): I10 - Essential (primary) hypertension (4) Weight loss Status: Acute Category: Medical Code(s): R63.4 - Abnormal weight loss (5) Hyponatremia Status: Acute Category: Medical Code(s): E87.1 - Hypo-osmolality and hyponatremia - Assessment and plan all Dx Assessment and Plan for all problems:: 1. Liver biopsy today 2. After liver biopsy anticoagulation will be restarted with close monitoring for worsening anemia. 3. Patient will continue PPI for his superficial gastric ulcer
--- NOTE | 2020-11-25 08:00 | CT_ITS ---
PROCEDURE: CT BIOPSY LIVER CLINICAL HISTORY: liver mass Multiple new liver masses COMPARISON: CT CT ABDOMEN PELVIS WO CON from 11/10/[address] ABDOMEN PELVIS WO/W CON from 11/21/2020 TECHNIQUE: Following obtaining informed consent and time-out procedure patient was placed in the left posterior oblique position and the largest mass in the right hepatic lobe was localized using standard CT technique. Conscious sedation was obtained with 0.5 mg of Versed and 25 mcg of fentanyl. The patient's vital signs were monitored and remained stable throughout the course of the procedure. One pass was made into the liver in the right hepatic lobe inferiorly with a 18 gauge introducer needle. One core biopsy was obtained with this needle. The pathologist confirm the tissue with touch prep technique. Fine needle aspiration was performed with the pre-existing needle following tissue confirmation. The patient tolerated procedure well without evidence mediate complications and left the radiology suite in stable condition and was recovered an outpatient recovery. FINDINGS: There are multiple hypodense liver lesions. Initial pre biopsy images showed small bilateral pleural effusions with bibasilar atelectatic changes. Multiple hypodense hepatic lesions are present mainly in the right hepatic lobe and have developed since an older exam of 11/10/2020 and may represent multiple hepatic abscesses. There are hepatic cyst also present in the left hepatic lobe as before. There is a small amount of fluid along the right pericolic gutter. Colonic diverticulosis is noted. Post biopsy images shows no evidence of perihepatic or intraperitoneal hematoma. No free air. IMPRESSION: Uneventful CT-guided biopsy of the right hepatic lobe mass with tissue confirmation by pathology. No immediate complications. Multiple hepatic lesions are present and have developed since an older exam of 11/10/2020 and may represent an infectious process with multiple hepatic abscesses. Dictated by: Francisco Kaur MD 11/25/2020 15:49 Francisco Kaur MD in [place] 11/25/2020 15:49
[2020-11-25 09:06] LABS: Anisocytosis 1+; Hypochromasia 1+; Lymphocytes % 10 % (10-50); Monocytes % 4 % (2-9); Neutrophils % 86 % (42-76); Platelet Estimate Normal; Total Cells Counted 100
--- NOTE | 2020-11-25 11:30 | PC.NURSE ---
Pt is lying supine in bed at this time. VSS. Dressing from biopsy remains CDI. No tenderness or pain noted to site per pt.
--- NOTE | 2020-11-25 15:55 | PC.NURSE ---
Pt has been pleasant this shift. VSS. No tenderness or pain from biopsy site. Pt has tolerated cardiac diet well this shift. No other acute changes or complaints at this time.
[2020-11-26] VITALS: BP 152/88; PULSE 100; RESP 16; TEMP 36.8; O2SAT 96
[2020-11-26 03:54] VITALS: BP 143/83; PULSE 100; RESP 17; TEMP 36.7; O2SAT 96
[2020-11-26 05:10] VITALS: BMI 24.7
--- NOTE | 2020-11-26 07:10 | HMH.ACPN2 ---
Internal Medicine - PN: Subj *Date: 11/26/20 *Time: 07:10 Interval history: Patient underwent CT-guided liver biopsy yesterday. He had several loose stools starting in the evening and continuing overnight. He denies abdominal pain. Exam Vital signs and Labs for Last 24 Hours: Temp Pulse Resp BP Pulse Ox 98.1 F 100 H 17 143/83 H 96 11/26/20 03:54 11/26/20 03:54 11/26/20 03:54 11/26/20 03:54 11/26/20 03:54 Laboratory Results - last 24 hr 11/22/20 11:05: Crossmatch (AHG) See Detail 11/25/20 05:53: Total Counted 100, Neutrophils % (Manual) 86 H, Lymphocytes % (Manual) 10, Monocytes % (Manual) 4, Platelet Estimate Normal, Hypochromasia 1+, Anisocytosis 1+ I & O for Last 24 hours: Intake & Output 11/23/20 11/24/20 11/25/20 11/26/20 11:59 11:59 11:59 11:59 Intake Total 1795 / 1795 240 / 240 290 / 290 480 / 480 Output Total 1350 / 1350 Balance 445 / 445 240 / 240 290 / 290 480 / 480 Weight 159 lb 9 oz 159 lb 9 oz 156 lb 7 oz 158 lb - Constitutional no acute distress - *Routine Respiratory Exam Present: CTA bilaterally - *Routine Cardiovascular Exam Present: RRR - *Routine Abdominal Exam Present: soft, normoactive bowel sounds. Absent: tenderness Assessment and Plan (1) Liver mass, right lobe Status: Acute Category: Medical Code(s): R16.0 - Hepatomegaly, not elsewhere classified (2) Portal vein thrombosis Status: Acute Category: Medical Code(s): I81 - Portal vein thrombosis (3) Essential hypertension Status: Acute Category: Medical Code(s): I10 - Essential (primary) hypertension (4) Weight loss Status: Acute Category: Medical Code(s): R63.4 - Abnormal weight loss (5) Hyponatremia Status: Acute Category: Medical Code(s): E87.1 - Hypo-osmolality and hyponatremia (6) Anemia due to blood loss, acute Status: Acute Category: Medical Code(s): D62 - Acute posthemorrhagic anemia (7) Gastric ulcer Status: Acute Category: Medical Code(s): K25.9 - Gastric ulcer, unspecified as acute or chronic, without hemorrhage or perforation - Assessment and plan all Dx Assessment and Plan for all problems:: 1. Await H&H this morning. Patient received Lovenox yesterday evening to begin anticoagulation again for his portal vein thrombosis. Patient will be transition to Eliquis as long as H&H remained stable. If H&H is stable patient can be discharged with close outpatient follow-up
[2020-11-26 07:35] LABS: Basophils % 0.1 % (0.1-2.0); Eosinophils # 0.1 K/mm3 (0.0-0.4); Eosinophils % 0.2 % (0.1-12.0); Hematocrit 34.3 % (42.0-52.0); Hemoglobin 10.7 g/dL (14.1-18.0); Lymphocytes # 1.5 K/mm3 (0.7-4.5); Lymphocytes % 6.7 % (10-50); Mean Corpuscular HGB Conc 31.2 g/dL (31.8-35.4); Mean Corpuscular Hemoglobin 27.1 pg (27.0-31.2); Mean Corpuscular Volume 86.9 fl (80-94); Mean Platelet Volume 7.2 fl (7.4-10.4); Monocytes # 0.6 K/mm3 (0.1-1.0); Monocytes % 2.6 % (1.7-9.3); Neutrophils # 20.8 K/mm3 (1.8-7.8); Neutrophils % 90.3 % (37.0-80.0); Platelet Count 588 K/mm3 (142-424); Red Blood Count 3.95 M/mm3 (4.60-6.20); Red Cell Distribution Width 14.7 % (11.5-17.5)
[2020-11-26 07:53] VITALS: BP 139/79; PULSE 101; RESP 16; TEMP 37.1; O2SAT 97
--- NOTE | 2020-11-26 07:55 | PC.NURSE ---
pt is AxOx4, has not complained of any pain this shift, has ambulated independently in room , lungs CTA, band aid in place from biopsy yesterday, no signs of bleeding noted
[2020-11-26 08:00] VITALS: O2SAT 97
[2020-11-26 08:12] LABS: MANUAL DIFFERENTIAL MANUAL DIFFERENTIAL (MANUAL DIFF)
[2020-11-26 09:26] LABS: Lymphocytes % 15 % (10-50); Monocytes % 4 % (2-9); Neutrophils % 78 % (42-76); Platelet Estimate Slight Increase; RBC Morphology Normal; Total Cells Counted 100
--- NOTE | 2020-11-26 14:30 | DIET.NUTRFU ---
No nutritional complaints/concerns, PO intakes 75%, tolerating well. Weight has remained stable. Pt has been provided diet edu for weight maintenance/adequate intakes and altered GI function. Continuing to monitor.
[2020-11-26 16:00] VITALS: BP 138/78; PULSE 96; RESP 18; TEMP 36.8; O2SAT 97
--- NOTE | 2020-11-26 16:37 | HMH.DCSUM ---
General - General Admission date:: 11/21/20 Discharge date: 11/27/20 HPI HPI: 75-year-old male undergoing outpatient work-up for underlying malignancy due to 6 weeks of malaise with weight loss and poor appetite was found to have a portal vein thrombosis on CT scan performed as an outpatient yesterday. Decision was made to admit the patient for anticoagulation. Patient also was found to have a large liver mass on CT scan which will require further work-up. Other than patient's anorexia and nausea patient has denied any abdominal complaints. Patient was briefly hospitalized approximately 2 weeks ago due to acute kidney injury. At that time patient had mild elevation in LFTs. Plan was to pursue outpatient work-up for malignancy. Patient had gastroenterology consult during that hospitalization. Autoimmune and viral hepatitis labs have returned negative. CEA and CA 19-9 have also been negative. Additional work-up did reveal iron deficiency. Alpha-fetoprotein has been ordered during this hospitalization. Patient reports overall no change in his condition. He denies abdominal pain, blood in his urine or stools, vomiting or hematemesis. 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 Patient was started on heparin initially for his portal vein thrombosis but due to difficulty achieving appropriate levels of anticoagulation this was changed to Lovenox 1 mg/kg subcu every 12 hours. This was continued during the remainder of hospitalization. It was held briefly for both his scopes and his liver biopsy. At the time of transfer patient remained on Lovenox. Dr. Fernández of the gastroenterology service was consulted for EGD and colonoscopy as part of the malignancy work-up. Patient underwent EGD and colonoscopy on November 24. EGD revealed a superficial gastric ulceration and colonoscopy did not reveal any signs of malignancy. It was arranged for patient to undergo CT-guided liver biopsy which was performed on November 25. Subsequent results of the liver biopsy showed a multiloculated pyogenic liver abscess. I was contacted by Dr. Fernández who had received pathology results and he recommended transfer to the [facility] liver service. I contacted Dr. Shartah Martinez and patient was accepted in transfer when a bed became available. Antibiotics which had been Invanz 1 g daily were changed to Rocephin 1 g IV daily along with metronidazole 500 mg every 6 hours. Before and during hospitalization patient has denied fevers or chills. Patient was anemic at baseline and after admission and IV fluids patient's hemoglobin dropped which required a transfusion of 2 units of packed red blood cells. After transfusion H&H remained stable. Patient does have known iron deficiency diagnosed at previous hospitalization. Objective Vital signs: Temp Pulse Resp BP Pulse Ox 98.8 F 101 H 16 139/79 97 11/26/20 07:53 11/26/20 07:53 11/26/20 07:53 11/26/20 07:53 11/26/20 08:00 no acute distress - *Routine Respiratory Exam Present: CTA bilaterally - *Routine Cardiovascular Exam Present: RRR - *Routine Abdominal Exam Present: soft, normoactive bowel sounds. Absent: tenderness Results Labs on day of discharge: Labs from last 24 hours 11/26/20 07:24 WBC 23.0 H* D RBC 3.95 L Hgb 10.7 L Hct 34.3 L MCV 86.9 MCH 27.1 MCHC 31.2 L RDW 14.7 Plt Count 588 H D MPV 7.2 L Neut % (Auto) 90.3 H Lymph % (Auto) 6.7 L Sawyer % (Auto) 2.6 Eos % (Auto) 0.2 Baso % (Auto) 0.1 Neut # (Auto) 20.8 H Lymph # (Auto) 1.5 Sawyer # (Auto) 0.6 Eos # (Auto) 0.1 Baso # (Auto) 0.0 Total Counted 100 Neutrophils % (Manual) 78 H Band Neutrophils % 3.0 Lymphocytes % (Manual) 15 Monocytes % (Manual) 4 Platelet Estimate Slight increase RBC Morphology Normal Preliminary micro results at discharge 11/25/20 Unk
--- NOTE | 2020-11-26 18:18 | PC.NURSE ---
Pt has been pleasant this shift. Both PIV's in bilat FA remain intact and patent. Pt continues to tolerate RA w/ o2 sats >95%. Pt is pending bed transfer to . No bed available at this time. No other acute changes or complaints at this time.
[2020-11-26 20:00] VITALS: BP 135/69; PULSE 96; RESP 16; TEMP 36.8; O2SAT 96
[2020-11-27 04:00] VITALS: BP 141/72; PULSE 96; RESP 16; TEMP 36.8; O2SAT 95
--- NOTE | 2020-11-27 04:51 | PC.NURSE ---
shift summary pts lung sounds are clear with sats maintained at 95% or above on room air with a rate ranging from 16-18. pt is alert and oriented X4. pt has had no complaints this shift pt denies any pain, nausea, or vomiting. pt is able to get up and go to the restroom unassisted with no issues.
[2020-11-27 05:16] VITALS: BMI 25.2
[2020-11-27 07:23] LABS: Basophils % 0.1 % (0.1-2.0); Eosinophils # 0.1 K/mm3 (0.0-0.4); Eosinophils % 0.2 % (0.1-12.0); Hematocrit 31.8 % (42.0-52.0); Hemoglobin 10.2 g/dL (14.1-18.0); Lymphocytes # 1.5 K/mm3 (0.7-4.5); Lymphocytes % 7.4 % (10-50); Mean Corpuscular HGB Conc 32.1 g/dL (31.8-35.4); Mean Corpuscular Hemoglobin 27.2 pg (27.0-31.2); Mean Corpuscular Volume 84.8 fl (80-94); Monocytes # 0.6 K/mm3 (0.1-1.0); Monocytes % 2.8 % (1.7-9.3); Neutrophils # 17.9 K/mm3 (1.8-7.8); Neutrophils % 89.5 % (37.0-80.0); Platelet Count 482 K/mm3 (142-424); Red Blood Count 3.76 M/mm3 (4.60-6.20)
--- NOTE | 2020-11-27 07:25 | HMH.ACPN2 ---
Internal Medicine - PN: Subj *Date: 11/27/20 *Time: 07:25 Interval history: Patient complains of frequent trips to the bathroom due to crampy abdominal pain although stools are very small in volume and sometimes only a small amount of liquid. Patient has been diagnosed with a pyogenic liver abscesses requiring transfer for specialty care and he is awaiting transfer to [facility] Exam Vital signs and Labs for Last 24 Hours: Temp Pulse Resp BP Pulse Ox 98.2 F 96 H 16 141/72 H 95 11/27/20 04:00 11/27/20 04:00 11/27/20 04:00 11/27/20 04:00 11/27/20 04:00 Laboratory Results - last 24 hr 11/26/20 07:24: WBC 23.0 H* D, RBC 3.95 L, Hgb 10.7 L, Hct 34.3 L, MCV 86.9, MCH 27.1, MCHC 31.2 L, RDW 14.7, Plt Count 588 H D, MPV 7.2 L, Neut % (Auto) 90.3 H, Lymph % (Auto) 6.7 L, Harford % (Auto) 2.6, Eos % (Auto) 0.2, Baso % (Auto) 0.1, Neut # (Auto) 20.8 H, Lymph # (Auto) 1.5, Harford # (Auto) 0.6, Eos # (Auto) 0.1, Baso # (Auto) 0.0, Total Counted 100, Neutrophils % (Manual) 78 H, Band Neutrophils % 3.0, Lymphocytes % (Manual) 15, Monocytes % (Manual) 4, Platelet Estimate Slight increase, RBC Morphology Normal I & O for Last 24 hours: Intake & Output 11/24/20 11/25/20 11/26/20 11/27/20 11:59 11:59 11:59 11:59 Intake Total 240 / 240 290 / 290 960 / 960 480 / 480 Balance 240 / 240 290 / 290 960 / 960 480 / 480 Weight 159 lb 9 oz 156 lb 7 oz 158 lb 160 lb 6 oz Microbiology Reports for the Last 24 Hours: Microbiology 11/25/20 Unknown Abdomen Gram Stain - Final 11/25/20 Unknown Abdomen Surgical Biopsy Culture - Preliminary NO GROWTH AFTER 24 HOURS 11/21/20 19:40 Blood Blood Culture - Final NO GROWTH AFTER 5 DAYS 11/21/20 19:40 Blood Blood Culture - Final NO GROWTH AFTER 5 DAYS - Constitutional no acute distress - *Routine Respiratory Exam Present: CTA bilaterally - *Routine Cardiovascular Exam Present: RRR - *Routine Abdominal Exam Present: soft, normoactive bowel sounds. Absent: tenderness Assessment and Plan (1) Liver abscess Status: Acute Category: Medical Code(s): K75.0 - Abscess of liver (2) Liver mass, right lobe Status: Acute Category: Medical Code(s): R16.0 - Hepatomegaly, not elsewhere classified (3) Portal vein thrombosis Status: Acute Category: Medical Code(s): I81 - Portal vein thrombosis (4) Essential hypertension Status: Acute Category: Medical Code(s): I10 - Essential (primary) hypertension (5) Weight loss Status: Acute Category: Medical Code(s): R63.4 - Abnormal weight loss (6) Hyponatremia Status: Acute Category: Medical Code(s): E87.1 - Hypo-osmolality and hyponatremia (7) Anemia due to blood loss, acute Status: Acute Category: Medical Code(s): D62 - Acute posthemorrhagic anemia (8) Gastric ulcer Status: Acute Category: Medical Code(s): K25.9 - Gastric ulcer, unspecified as acute or chronic, without hemorrhage or perforation - Assessment and plan all Dx Assessment and Plan for all problems:: 1. Patient is stable and awaiting transfer. Continue Rocephin and metronidazole for his liver abscess 2. Continue subcu Lovenox as long as patient does not develop signs of bleeding for the portal vein thrombosis 3. Patient will be started on a probiotic and medication will be added for abdominal cramping/diarrhea
[2020-11-27 07:26] LABS: MANUAL DIFFERENTIAL MANUAL DIFFERENTIAL (MANUAL DIFF)
[2020-11-27 07:29] LABS: Chloride 106 mmol/L (98-107); Potassium 3.3 mmoL/L (3.5-5.1); Sodium 138 mmol/L (136-145)
[2020-11-27 07:31] LABS: Alanine Aminotransferase 73 U/L (12-78); Aspartate Amino Transferase 49 U/L (17-59); Blood Urea Nitrogen 20 mg/dl (9-20); Creatinine Clearance Estimated 67 mL/min (50-200); Estimated Glomerular Filt Rate 110 ml/min (>60); GFR (African American) 133 ML/MIN (>60)
[2020-11-27 07:32] LABS: Albumin Level 2.7 g/dl (3.5-5.0); Albumin/Globulin Ratio 0.9 (1.1-1.8); Alkaline Phosphatase 319 U/L (38-126); Anion Gap 10.3 mEq/L (5-15); Bilirubin,Total 0.9 mg/dl (0.2-1.3); Calcium 8.5 mg/dl (8.4-10.2); Carbon Dioxide 25 mmol/L (22.0-30.0); Glucose 104 mg/dl (74-100); Total Protein,Serum 5.7 g/dl (6.3-8.2)
[2020-11-27 08:00] VITALS: BP 131/75; PULSE 93; RESP 16; TEMP 36.8; O2SAT 96
[2020-11-27 08:49] LABS: Lymphocytes % 8 % (10-50); Monocytes % 5 % (2-9); Neutrophils % 87 % (42-76); Total Cells Counted 100
[2020-11-27 08:50] LABS: Platelet Estimate Normal; RBC Morphology Normal
--- NOTE | 2020-11-27 11:58 | PC.NURSE ---
Called to check on the status of bed at at this time. no beds available at this time
--- NOTE | 2020-11-27 14:44 | PC.NURSE ---
Addendum entered by Nessa Membreno RN 11/27/20 18:45: ATTEMPTED TO CALL REPORT TO . THEY STATED THEY WOULD CALL BACK FOR REPORT. HOSPITAL NUMBER AND EXTENSION [id number] WAS GIVEN TO Addendum entered by Nessa Membreno RN 11/27/20 18:12: CALLED LATE THIS AFTERNOON AND STATED THEY SHOULD HAVE A BED FOR PT SOMETIME TODAY Original Note: PT IS RESTING IN BED. HAS BEEN SLEEPING MOST OF THE SHIFT. AMBULATES TO THE BATHROOM. PT HAS HAD A COUPLE OF LOOSE STOOLS THIS SHIFT. 2+ PITTING EDEMA NOTED TO BILATERAL ANKLES. LUNG SOUNDS CLEAR. ABDOMEN SOFT/NON TENDER WITH ACTIVE BOWEL SOUNDS. MILD BRUISING NOTED TO ABDOMEN FROM LOVENOX INJECTIONS. EATING AND DRINKING FAIR. VSS. STILL AWAITING BED TO . WILL CONTINUE TO MONITOR.
[2020-11-27 16:00] VITALS: BP 144/70; PULSE 85; RESP 20; TEMP 36.9; O2SAT 95
[2020-11-27 19:52] VITALS: BP 140/72; PULSE 94; RESP 16; TEMP 36.9; O2SAT 94
--- NOTE | 2020-11-27 21:51 | PC.NURSE ---
patient left floor with EMS to [facility] at this time .
--- NOTE | 2020-11-27 22:26 | PC.NURSE ---
2200 pt was picked up by EMS to be taken to .
== END 2020-11-27 22:00 | disposition short-term general hospital (02) | DRG 441 ==
LOC: 2ND 18:36
PROVIDERS: Internal Medicine Gastroenterology; Radiology Diagnostic Radiology; Admitting Provider Family Medicine; PCP Family Medicine; Visit Provider Family Medicine
PROC: 0DJ08ZZ Inspection of Upper Intestinal Tract, Via Natural or Artificial Opening Endoscopic (ICD-10-PCS; CPT 43235; principal; 2020-11-24 08:45)
DX: I81 Portal vein thrombosis (principal); K75.0 Abscess of liver; E87.1 Hypo-osmolality and hyponatremia; D62 Acute posthemorrhagic anemia; K25.9 Gastric ulcer, unspecified as acute or chronic, without hemorrhage or perforation; I10 Essential (primary) hypertension; E78.5 Hyperlipidemia, unspecified; R63.4 Abnormal weight loss; E86.0 Dehydration; K29.70 Gastritis, unspecified, without bleeding; Z79.82 Long term (current) use of aspirin; K57.30 Diverticulosis of large intestine without perforation or abscess without bleeding; K64.2 Third degree hemorrhoids; N40.2 Nodular prostate without lower urinary tract symptoms; E61.1 Iron deficiency
CPT/HCPCS: 43239; 45378; 47000; 36415; 74178; 77012; 80053; 82105; 82378; 85007; 85014; 85018; 85025; 85610; 85730; 86316; 86850; 87040; 87070; 87205; 87581; 87633; 87798; 88305; 88307; 88312; 88342; J1335; P9016; Q9967

== ENCOUNTER 2020-12-29 18:03 | Emergency (ER) | payer MEDICARE, OTHER, SELFPAY ==
[2020-12-29 18:24] VITALS: BP 162/91; PULSE 70; RESP 16; TEMP 36.9; O2SAT 98; BMI 24.4
--- NOTE | 2020-12-29 18:39 | PC.NURSE ---
Called lab to ask for blood draw
[2020-12-29 18:57] LABS: Basophils % 0.5 % (0.1-2.0); Eosinophils # 0.3 K/mm3 (0.0-0.4); Eosinophils % 3.5 % (0.1-12.0); Hematocrit 37.4 % (42.0-52.0); Hemoglobin 12.1 g/dL (14.1-18.0); Lymphocytes # 2.6 K/mm3 (0.7-4.5); Lymphocytes % 32.9 % (10-50); Mean Corpuscular HGB Conc 32.4 g/dL (31.8-35.4); Mean Corpuscular Hemoglobin 28.2 pg (27.0-31.2); Mean Platelet Volume 7.8 fl (7.4-10.4); Monocytes # 0.5 K/mm3 (0.1-1.0); Monocytes % 6.6 % (1.7-9.3); Neutrophils # 4.5 K/mm3 (1.8-7.8); Neutrophils % 56.6 % (37.0-80.0); Platelet Count 285 K/mm3 (142-424); Red Cell Distribution Width 17.8 % (11.5-17.5)
--- NOTE | 2020-12-29 19:04 | HMH.EDGENADL ---
ED Disposition Clinical Impression: Abnormal laboratory test Disposition: Home, Self-Care Condition on Discharge: Good Instructions: DI for Physical Exam -- Adult Referrals: Heidi Mueller MD [Primary Care Provider] - - Critical Care Critical Care Time: No Attestation: On 12/29/20, the high probability of a clinically significant, sudden or life threatening deterioration of the following system(s) required my full and direct attention, intervention and personal management. The time I documented below is in addition to time spent performing reported procedures but includes the following listed in this critical care notation. Medical Decision Making - Medical Records Medical records reviewed: Yes: I reviewed the patient's medical records. - Jayce Inquiry Pt receiving controlled substance: No Vital Signs: 12/29/20 18:24 Temperature 98.5 F Temperature Source Oral Pulse Rate [Right] 70 Respiratory Rate 16 Blood Pressure [Right Arm] 162/91 H Blood Pressure Mean [Right Arm] 114 Blood Pressure Source [Right Arm] Automatic Cuff Blood Pressure Position [Right Arm] Sitting 02 Sat by Pulse Oximetry 98 Oxygen Delivery Method Room Air - Lab Data Lab Results 12/29/20 18:47: WBC 8.0, RBC 4.30 L, Hgb 12.1 L, Hct 37.4 L, MCV 87.0, MCH 28.2, MCHC 32.4, RDW 17.8 H, Plt Count 285, MPV 7.8, Neut % (Auto) 56.6, Lymph % (Auto) 32.9, Leslie % (Auto) 6.6, Eos % (Auto) 3.5, Baso % (Auto) 0.5, Neut # (Auto) 4.5, Lymph # (Auto) 2.6, Leslie # (Auto) 0.5, Eos # (Auto) 0.3, Baso # (Auto) 0.0 12/29/20 18:47: Sodium 140, Potassium 3.8, Chloride 106, Carbon Dioxide 26, Anion Gap 11.8, BUN 26 H, Creatinine 0.80, Estimated Creat Clear 65, Estimated GFR 94, Est GFR ( Amer) 114, Glucose 116 H, Calcium 9.5, Magnesium 2.0, Total Bilirubin 0.5, AST 51, ALT 29, Alkaline Phosphatase 144 H, Total Protein 7.1, Albumin 4.0, Globulin 3.1, Albumin/Globulin Ratio 1.3 Result diagrams: 12/29/20 18:47 12/29/20 18:47 Orders (Tests/Meds): ORDERS Category Date Time Status Calcium, Ionized Stat Lab 12/29/20 18:20 Ordered - Reevaluation(s) Time: 19:24 Reevaluation #1: On reevaluation, patient remains asymptomatic. Potassium and calcium are both within normal limits. Previous labs were likely laboratory error. Patient needs to maintain his follow-up with hepatology as well as infectious disease. They are to resume the normal antibiotic treatment as previously described. Given strict return precautions. Verbalized understanding. Medical Decision Narrative: 75-year-old male sent to the emergency department for abnormal laboratory studies. The patient apparently had a low potassium and calcium today. Patient is asymptomatic. Benign exam. Work-up initiated. General Adult HPI - General Chief complaint: Recheck/Abnormal Lab/Rx Stated complaint: labs draw this AM to to Eval Time Seen by Provider: 12/29/20 18:30 Mode of Arrival: Ambulatory Limitations: No Limitations Description of Symptoms (Recalled from ER Triage Doc. by RN): Pt daughter advises he had labs drawn this morning and home health reported that he had critical results and needed to be seen in the ED - History of Present Illness HPI narrative: This is a 75-year-old male presented to the emergency department for evaluation of abnormal laboratory studies. The patient has been having home health care come to evaluate him every day secondary to his prolonged admission. The patient was at [facility] and diagnosed with liver abscesses. He is currently on a prolonged treatment for outpatient antibiotics. The patient is receiving ceftriaxone daily. He received routine labs today and was found to have a low potassium and calcium. Patient was sent to the emergency department for evaluation. Patient is asymptomatic at this time. Denies any headache or change in vision. No focal weakness. No chest pain or shortness of breath. No abdominal pain or vomiting. -
[2020-12-29 19:05] LABS: Alanine Aminotransferase 29 U/L (12-78); Aspartate Amino Transferase 51 U/L (17-59); Blood Urea Nitrogen 26 mg/dl (9-20); Creatinine Clearance Estimated 65 mL/min (50-200); Estimated Glomerular Filt Rate 94 ml/min (>60); GFR (African American) 114 ML/MIN (>60)
[2020-12-29 19:06] LABS: Albumin/Globulin Ratio 1.3 (1.1-1.8); Alkaline Phosphatase 144 U/L (38-126); Bilirubin,Total 0.5 mg/dl (0.2-1.3); Calcium 9.5 mg/dl (8.4-10.2); Carbon Dioxide 26 mmol/L (22.0-30.0); Globulin 3.1 g/dL (1.3-3.2); Glucose 116 mg/dl (74-100); Total Protein,Serum 7.1 g/dl (6.3-8.2)
[2020-12-29 19:14] LABS: Sodium 140 mmol/L (136-145)
[2020-12-29 19:15] LABS: Anion Gap 11.8 mEq/L (5-15); Chloride 106 mmol/L (98-107); Potassium 3.8 mmoL/L (3.5-5.1)
[2020-12-29 20:29] VITALS: BP 164/71; PULSE 68; RESP 16; TEMP 36.9; O2SAT 98
[2021-01-01 09:14] LABS: Calcium, Ionized 5.5 mg/dL (4.5-5.6)
== END 2020-12-29 20:31 | disposition home or self-care (01) ==
PROVIDERS: Emergency Provider Emergency Medicine; PCP Family Medicine
DX: K75.0 Abscess of liver (principal); I10 Essential (primary) hypertension; E78.5 Hyperlipidemia, unspecified; Z79.899 Other long term (current) drug therapy
CPT/HCPCS: 80053; 82330; 83735; 85025; 99282

== ENCOUNTER → 2021-01-16 10:29 | Outpatient (CLI) | payer MEDICARE, OTHER, SELFPAY ==
[2021-01-16 10:33] LABS: Adenovirus F 40/41, stool Not Detected (NotDetected); Astrovirus Not Detected (NotDetected); Campylobacter Not Detected (NotDetected); Cryptosporidium Not Detected (NotDetected); Cyclospora Cayetanesis Not Detected (NotDetected); Entamoeba histolytica Not Detected (NotDetected); Enteroaggregative E coli Not Detected (NotDetected); Enteropathogenic E coli Not Detected (NotDetected); Enterotoxigenic E coli Not Detected (NotDetected); Giardia lamblia Not Detected (NotDetected); Norovirus Not Detected (NotDetected); Plesimonas Shigalloides, PCR Not Detected (NotDetected); Rotavirus A Not Detected (NotDetected); Salmonella, PCR Not Detected (NotDetected); Sapovirus Not Detected (NotDetected); Shiga-like toxin E coli Not Detected (NotDetected); Shigella Enterovasive E coli Not Detected (NotDetected); Vibrio Cholerae Not Detected (NotDetected); Vibrio, PCR Not Detected (NotDetected); Yersinia Entercolitica, PCR Not Detected (NotDetected)
[2021-01-16 13:16] LABS: Clostridium Difficile A/B, PCR Detected (NotDetected)
== END ==
PROVIDERS: Visit Provider Internal Medicine Gastroenterology
DX: R19.7 Diarrhea, unspecified (principal); A04.72 Enterocolitis due to Clostridium difficile, not specified as recurrent
CPT/HCPCS: 87506

== ENCOUNTER → 2021-02-10 19:51 | Outpatient (CLI) | payer MEDICARE, OTHER, SELFPAY | PROVIDERS: Visit Provider Internal Medicine Gastroenterology | DX: R19.7 Diarrhea, unspecified (principal) ==

== ENCOUNTER 2025-06-15 14:22 | Emergency (ER) | payer MEDICARE, OTHER, SELFPAY ==
[2025-06-15 14:23] VITALS: BP 165/110; PULSE 77; RESP 16; TEMP 36.8; O2SAT 96; BMI 25.8
[2025-06-15 14:45] VITALS: BP 165/110; PULSE 77; O2SAT 98
[2025-06-15 15:00] VITALS: BP 134/96; PULSE 80; O2SAT 99
--- NOTE | 2025-06-15 15:08 | ED_ITS ---
Discharge Plan Disposition Patient Disposition: Home, Self-Care Condition: Good Prescriptions Prescriptions: No Action simvastatin 10 MG tablet 20 mg PO HS benazepril 10 MG tablet 10 mg PO DAILY amlodipine 5 MG tablet 5 mg PO DAILY aspirin 81 MG tablet,delayed release (DR/EC) 81 mg PO DAILY ferrous sulfate 325 MG tablet 325 mg PO DAILY [id number]-rul-[id number]-[id number] 1 EACH tablet 1 each PO DAILY Referrals Follow up/Referrals: Heidi Mueller MD [Primary Care Provider, Medical] - See instructions Activity Restrictions/Add. Instructions Additional Instructions/Restrictions: Wash the wound twice daily with soap and water. You can keep the wound open when you are not using your hands. Or using your hands outside or cleaning the dishes etc. keep it covered to try to prevent infection. Return to the emergency department for acute worsening redness drainage or severe swelling or pain of the finger. Clinical Impressions Clinical Impression: Finger laceration Instructions Patient Instructions: DI for Laceration Repair Print Language Print Language: [place]se Discharge ED Provider: Jeannie Miranda General Adult HPI General Chief complaint: Wound/Laceration Stated complaint: AO 06/15 1320, cut left index finger Time Seen by Provider: 06/15/25 15:07 Mode of Arrival: Ambulatory Source of Information: Patient Description of Symptoms (Recalled from ER Triage Doc. by RN): pt presents to the ED with a laceration to his left index finger. pt reports that he was cutting up a deer and needed to sharpen his knife when he cut his left index finger. Denies blood thinner. Unknown last tetanus shot. History of Present Illness HPI narrative: Patient is a 80-year-old gentleman who presented to the emergency department with a laceration to his index finger. Patient states that was going to use a knife to cut a deer when he needed to sharpen it and he cut his self on the finger. Patient states that it was a clean knife. Patient denies any weakness or sensory changes. Patient is unsure when his last tetanus shot was. Patient is not on any blood thinners. Patient has no other concerns at this time. Related Data Home Medications ?Medication ?Instructions ?Recorded ?Confirmed benazepril 10 mg tablet 10 mg PO DAILY High blood pr essure 01/20/19 11/21/20 simvastatin 10 mg tablet 20 mg PO HS Cholesterol /09/0911/21/20 amlodipine 5 mg tablet 5 mg PO DAILY High blood pre ssure 11/10/20 11/21/20 aspirin 81 mg tablet,delayed 81 mg PO DAILY HEART HEAL TH 11/10/20 11/21/20 release ferrous sulfate 325 mg (65 mg 325 mg PO DAILY Suppleme nt 11/21/20 11/21/20 iron) tablet rjltcfer-ke-hpfql 300 mcg-K 60 1 each PO DAILY Supplem ent 11/22/20 11/22/20 mcg-lycop 600 mcg-lutein 300 mcg tablet Allergies Allergy/AdvReac Type Severity Reaction Status Date / Time No Known Allergies Allergy Verified 12/29/20 18:38 [facility] Disclaimer: The information contained in this section may have been updated after the patient was seen, as this information can be updated by other users. Social History Smoking Status: Never smoker alcohol intake: never substance use type: denies use current occupational status: retired Travel in the last 8 weeks?: None household members: other housing: house caffeine: No Have you lived/traveled outside US in past 30 days?: No Contact w/someone who lives/traveled outside US past 30 days?: No Exposure to someone with infectious disease in past 14 days?: No Do you have a fever (greater than 100.4 F or 38 C)?: No Have you tested positive for COVID-19?: No Exposed to someone with COVID-19 in past 14 days?: No Do you have a sore throat?: No Do you have a cough?: No Do you have any weakness?: No Do you have any diarrhea?: No Are you experiencing any unusual bleeding?: No Do you have any muscle aches/pain?: No Do you have any abdominal pain?: No Are you experiencing loss of taste or smell?: No Other Medical History Have you received the Flu Vaccine for this season: Yes Have you received the Pneumonia Vaccine: Yes ROS Obtained: Yes All systems reviewed & no additional complaints except as do cumented and Yes Systems reviewed as appropriate & no additional complaints except as documented Physical Exam General General appearance: alert and in no apparent distress Head Head exam: atraumatic, normocephalic and normal inspection Eye Eye exam: Present normal appearance, PERRL and EOMI; Absent scleral icterus ENT ENT exam: Present normal exam and normal external ear exam Neck Neck exam: Present normal inspection and full ROM Chest Chest inspection: Present normal inspection and symmetric chest wall rise Respiratory Respiratory exam: Present normal lung sounds bilaterally; Absent respiratory distress or wheezes Cardiovascular Cardiovascular exam: Present regular rate, normal rhythm, normal heart sounds and other (2+ radial pulse in the LUE) Abdominal Exam Abdominal exam: Present soft and distention; Absent tenderness, guarding or rebound Extremities Exam Extremities exam: Present normal inspection and full ROM Back Exam Back exam: Present normal inspection and full ROM Neurological Exam Neurological exam: Present alert, oriented X3 and other (NVI in the left hand) Psychiatric Psychiatric exam: Present normal affect and normal mood Skin Skin exam: Present warm, dry and other (2 cm laceration to the L index finger on the dorsal aspect) Medical Decision Making Medical Records Medical records reviewed: Yes I reviewed the patient's medical records. Screening: Per USPSTF and CDC recommendations, given the prevalence of disease in our region, it is our hospital?s policy to screen for HIV and viral Hepatitis for all patients aged 18 and over and those with ongoing risk factors. Jayce Inquiry Pt receiving controlled substance: No Vital Signs: 06/15/25 14:23 06/15/25 14:23 06/15/25 14:45 Temperature 98.3 F 98.3 F Temperature Source Oral Oral Pulse Rate 77 77 Pulse Rate [Right] 77 Respiratory Rate 16 16 Blood Pressure 165/110 H 165/110 H Blood Pressure [Right Arm] 165/110 H Blood Pressure Mean [Right Arm] 128 Blood Pressure Source Automatic Cuff Blood Pressure Source [Right Arm] Automatic Cuff Blood Pressure Position Supine Blood Pressure Position [Right Arm] Supine 02 Sat by Pulse Oximetry 96 96 98 Oxygen Delivery Method Room Air Room Air Room Air 06/15/25 15:00 06/15/25 15:30 06/15/25 16:06 Temperature 98.3 F Temperature Source Oral Pulse Rate 80 79 97 H Pulse Rate [Right] Respiratory Rate 16 Blood Pressure 134/96 H 159/103 H 138/99 H Blood Pressure [Right Arm] Blood Pressure Mean [Right Arm] Blood Pressure Source Automatic Cuff Blood Pressure Source [Right Arm] Blood Pressure Position Blood Pressure Position [Right Arm] 02 Sat by Pulse Oximetry 99 93 L Oxygen Delivery Method Room Air Room Air Room Air Lab Data Lab results reviewed: Yes I reviewed the patient's lab results. Orders (Tests/Meds): ED MEDICATIONS Discontinued Medications Generic Name Dose Route Start Last Admin Trade Name Melba PRN Reason Stop Dose Admin Lidocaine HCl 3 ml 06/15/25 16:10 06/15/25 16:10 Lidocaine 1% 20ml Mdv SUBCUT 06/15/25 16:11 3 ml ONCE ONE Administration Tetanus/Reduced Diphtheria/Acell Pertussis 0.5 ml 06/15/25 15:13 06/15/25 15:31 Tet/Diphth/Pert-Adult 0.5ml Syringe IM 06/15/25 15:14 0.5 ml .ONCE ONE Administration Medical Decision Narrative: Patient is an otherwise healthy 80-year-old gentleman who presented to the emergency department with a laceration to his left index finger. On arrival, patient was hemodynamically stable with unremarkable vital signs Differential includes but not limited to: Laceration, fracture, tendon injury, nerve injury, vascular injury, amongst others. On exam, patient had a very superficial laceration along his left index finger. Low concern for foreign body or underlying fracture. Patient had no active bleeding low concern for vascular injury. Patient was neurovascularly intact with full motor and sensation therefore low concern for nerve or tendon injury. Patient's wound was numbed and patient had a laceration repaired at bedside. Patient's wound was extensively cleaned. Nonabsorbable stitches were placed given the location. Patient was given wound care instructions. Prophylactic antibiotics were not felt to be indicated given that a clean knife was used to cut his finger. Patient was given a tetanus shot patient was otherwise discharged home in stable condition, return precautions were discussed. Procedures Laceration Laceration 1: Site: finger Side (If applicable): left Size (cm): 2 Description: linear Depth: simple, single layer Local Anesthetic: lidocaine 1% Amount of anesthesia used (mL): 5 Pre-repair: wound explored Skin layer closed with: other (ethilon) Size (cm): 5-0 Number of sutures: 6 Technique: simple, interrupted Critical Care Critical Care Time Critical Care Time: No
[2025-06-15 15:30] VITALS: BP 159/103; PULSE 79; O2SAT 93
[2025-06-15] MEDS: TET/DIPHTH/PERT-ADULT 0.5ML SYRINGE 0.5 ML IM (15:31)
--- OUTSIDE RECORDS SUMMARY | 2025-06-15 15:39 | XMS_ITS | Data Portability ---
Author Organization [facility] [place] [place] Address [address] [place] [address] Assessment No assessment recorded. Plan of Treatment Reminders Order Date Submit Date Provider Last Modified By Organization Details Last Modified Time Details Appointments None recorded . Lab PSA, total + free, serum or plasma 023 05/04/20 23 [email or web address] Not available 3 16:18:36 Referral None recorded . Procedures None recorded . Surgeries None recorded . Imaging None recorded . Medication Orders None recorded . Patient TargetsNo targets recorded. Patient InstructionsNo instructions recorded. Reason for Referral None Reported. Results Created Date Observation Date Name Description Value Unit Range Abnormal Flag Note LastModifiedBy Organization Detail LastModifiedTime Result Notes None recorded. Problems Name Problem SNOMED Code Status Onset Date Resolution Date Notes Provider Name and Address Organization Details Recorded Time Hypertensive disorder 73183306 Active 2022 Pee kim [facility] & [place] 3 10:36:15 Arthritis 3677345 Active 2022 Pierreagusto Verdin judy [facility] & [place] 3 10:36:21 Problem Notes None recorded. Procedures Surgical History Date Name Laterality Status Provider Name and Address Organization Details Recorded Time procedure on shoulder completed Pee MARTINES [facility] & [place] 05/04/2023 10:37:30 Imaging Results None recorded. Procedure Notes None recorded. Medical Equipment None Reported. Allergies No known drug allergies Medications Name Sig Start Date Stop Date Status Note LastModified by Organization Details LastModified Time amlodipine 5 mg tablet active Not Available Not Available No t Available benazepril 20 mg tablet active Not Available Not Available Not Available benazepril 10 mg tablet 2022 completed Not Available Not Available Not Available aspirin active Not Available Not Avail able Not Available Vitals Date Recorded Body height Body mass index (BMI) Body weight Body temperature Provider Name and Address Organization Details Last Updated DateTime 05/04/2023 170.18 cm 25.8 kg/m2 70009.74 g 97.9 [degF] Pee Verdin [facility] & [place] 05/04/2023 10:33:41 Social History None recorded. Functional Status Question Answer Note LastModified by Organization D etails LastModified Time What is your level of alcohol consumption? None [email or web address] Information not available 05/04/2023 Mental Status None recorded. Family History Relationship Description Onset Age of this Age Resolved Age Notes LastModified by Organization Details LastModified Time Mother Malignant neoplastic disease dec [email or web address] Not available 2022 10:36:45 Father Myocardial infarction dec [email or web address] Not available 05/04 10:37:05 Sister Family history unknown [email or web address] Not available 2022 10:37:14 Medical History No medical history recorded. Past Encounters Encounter ID Performer Location Encounter Start Date Encounter Closed Date Diagnosis/Indication Diagnosis SNOMED-CT Code Diagnosis ICD10 Code Diagnosis IMO Codes Diagnosis Note [id number] Clinton Hayes Jr, MD [facility] [address] [address] 05/04/2023 10:19:05 05/04/2023 11:17:21 Prostate specific antigen above reference range 722426607 R97.20 78-year-ol d white male with elevated PSA. We discussed the various causes of an elevated PSA including prostate cancer, BPH and prostatiti s. He declines prostate examinatio n today. We discussed treatment options including watchful waiting with PSAs every 6 months versus prostate biopsy. Patient prefers to manage conservati vely we will see him back in 6 months with a free and total PSA. 25 minutes was spent with patient in consultati on today. Health Concerns Section Related Observation LastModified by Organization Detai ls LastModified Time None Recorded Concern Status LastModified by Organization Details LastModified Time None Recorded Advance Directives Directive None Recorded Payers Insurance Date Sequence Insurance Name Policy Number Policy Cole Covered Member ID Cole Member ID Guarantor Name 05/02/2023 2 [employer] (MEDICARE SUPPLEMENT) Abimael Reffett [id number] Abimael Reffett 05/09/2023 1 [place] Abimael Wolfe Reffett [id number] Abimael Reffejeri 06/05/2023 2 [employer] (MEDICARE SUPPLEMENT) Abimael Reffett [id number] Abimael Reffejeri Notes Date Note Type Note Provider Name and Address Organization Details Recorded Time 05/04/2023 text/html patient is a 78-year-old white male referred for elevated PSA. Patient's recent PSA was 7.2 on April 14, 2023. PSA 1 year ago was 7.7. His recent free PSA puts him at a 23% risk of prostate cancer. He denies a family history of prostate cancer. He does state that his brother had stomach cancer and had a terrible time with chemotherapy until he eventually succumbed. Patient is very adamant against doing anything that may make his quality life worse. Clinton Hayes Jr, MD [address] [place] [address], [address], [place], [address], [facility] [place] & [place] 05/04/2023 12:36:49
--- OUTSIDE RECORDS SUMMARY | 2025-06-15 15:39 | XMS_ITS | Clinical Summary ---
Author Organization [facility] Address [address] [place] [address] Care Team Providers Care Sulfonator Operator Name Role Phone Frank Mueller MD Primary Care Provider [phone] Abida Simeon RN Unavailable [phone] Rick Cuellar MD Unavailable Allergies No known active allergies Medications cefTRIAXone (Rocephin) 1 g Take by mouth. 12/25/2020 Active amLODIPine (Norvasc) 5 MG tablet Take by mouth. 12/25/2020 Active Multiple Vitamins-Mineral s (CENTRUM SILVER 50+MEN PO) Take by mouth. 12/25/2020 Active calcium carbonate-vitami n D 600-200 MG-UNIT tablet Take by mouth. 12/25/2020 Active ferrous sulfate 325 (65 Fe) MG tablet Take by mouth. 12/25/2020 Active metroNIDAZOLE (Flagyl) 500 MG tablet Take by mouth. 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 Family History Medical History Relation Name Comments Hepatitis Other 1 Liver disease Other 2 Relation Name Status Comments Other 1 Other 2 Social History Tobacco Use Types Packs/Day Years Used Date Smoking Tobacco: Former Alcohol Use Standard Drinks/Week Comments No 0 (1 standard drink = 0.6 oz pur e alcohol) Sex and Gender Information Value Date Recorded Sex Assigned at Male 02/16/2021 7:18 AM EDT Legal Sex Male 8:00 PM EDT Gender Identity Male 02/16/2021 7:18 AM EDT Sexual Orientation Straight 02/16/2021 7: 18 AM EDT Last Filed Vital Signs Vital Sign Reading Time Taken Comments Blood Pressure 155/86 01/20/2021 3:53 PM EDT Pulse 102 12/25/2020 4:52 PM EDT Temperature 36.9 C (98.5 F) 01/20/2021 3:53 PM EDT Respiratory Rate 16 12/25/2020 4:52 PM EDT Oxygen Saturation - - Inhaled Oxygen Concentration - - Weight 70.3 kg (155 lb) 02/16/2021 7:42 AM EDT Height 170.2 cm (5' 7 ) 02/16/2021 7:42 AM EDT Body Mass Index 24.28 02/16/2021 7:42 AM EDT Plan of Treatment Health Maintenance Due Date Last Done Comments [facility]-Depression Screening 1945 [facility]-/Child/Adol SDOH Screenings 1945 [facility]- SDOH Screenings 02/21/1964 [facility]-Adult SDOH Screenings 02/21/1964 [facility]-DTaP,Tdap,and Td Vaccines (1 - Tdap) 1965 [facility]-Pneumococcal Vaccine: 50+ Years (1 of 1 - PCV) 02/21/1996 [facility]-Zoster Vaccines (1 of 2) 02/21/1996 [facility]-RSV Vaccine: 60+ Years or (1 - 1-dose 75+ series) 2021 [id number] Vaccine (1 - season) 2025 [facility]-Influenza Vaccine (#1) 04/22/202505/30, 06/18/2019, 05/18/2016 HPV Vaccines Aged Out No longer eligi ble based on patient's age to complete this topic [facility]-HIB Vaccines Aged Out No longer e ligible based on patient's age to complete this topic [facility]-Hepatitis A Vaccines Aged Out No longer eligible based on patient's age to complete this topic [facility]-IPV Vaccines Aged Out No longer e ligible based on patient's age to complete this topic [facility]-Rotavirus Vaccines Aged Out No lo nger eligible based on patient's age to complete this topic Insurance MEDICARE [facility] Care Teams Sulfonator Operator Relationship Specialty Start Date End Date Frank Mueller MD [address] [place] [address] #1 #1 CONRAD Olivares [id number] PCP - General 01/02/21 Abida Simeon RN [facility] [address] [place] [id number] Registered Nurse Transplant 01/20/21 Rick Cuellar MD [address] [place] [address] Surgeon Transplant Surgery 01/20/21
[2025-06-15 16:06] VITALS: BP 138/99; PULSE 97; RESP 16; TEMP 36.8; O2SAT 98
[2025-06-15] MEDS: LIDOCAINE 1% 20ML MDV 3 ML SUBCUT (16:10)
== END 2025-06-15 16:23 | disposition home or self-care (01) ==
PROVIDERS: Emergency Provider Student in an Organized Health Care Education/Training Program; PCP Family Medicine
DX: S61.211A Laceration without foreign body of left index finger without damage to nail, initial encounter (principal); W26.0XXA Contact with knife, initial encounter
CPT/HCPCS: 12001; 90471; 90715; 99283; 99284